=== PATIENT | male | born 1995 | race Caucasian/White ===

== ENCOUNTER 2016-12-27 18:12 | Inpatient (IN) | payer MEDICAID ==
[~2016-12-27] VITALS: Ht 180.3 cm; Wt 73.1 kg
--- NOTE | 2016-12-27 20:25 | NUR ---
MSE COMPLETED BY DR JIMÉNEZ
--- NOTE | 2016-12-27 20:27 | NUR ---
XRAY AT BEDSIDE
[2016-12-27 20:33] LABS: BASOPHIL % 0.1 % (0-2); RED CELL DISTRIBUTION WIDTH 13.2 % (11.5-14.5)
[2016-12-27 20:38] LABS: PLATELET COUNT 120 x10^3mcL (130-400)
[2016-12-27 20:41] LABS: CALCIUM 8.9 mg/dL (8.5-10.1); CARBON DIOXIDE 29.8 mmol/L (21-32); CHLORIDE SERUM 103 mmol/L (98-107); CREATININE SERUM 0.8 mg/dL (0.7-1.3); GFR1 > 60 mL/min; GLUCOSE SERUM 88 mg/dL (74-106); SODIUM SERUM 142 mmol/L (136-145)
[2016-12-27 20:56] LABS: ALBUMIN 3.5 g/dL (3.4-5.0); ALKALINE PHOSPHATASE 47 U/L (46-116); ALT/SGPT 24 U/L (16-63); AST/SGOT 38 U/L (15-37); BILIRUBIN TOTAL 0.4 mg/dL (0.20-1.00); TOTAL PROTEIN, SERUM 8.7 g/dL (6.4-8.2)
[2016-12-27 21:07] LABS: microscopic required? NO
[2016-12-27 21:22] LABS: CK-MB < 0.5 ng/mL (0-3.6); CREATINE KINASE 51 U/L (39-308)
[2016-12-27 21:29] LABS: UA SPECIFIC GRAVITY 1.015 (1.005-1.035); urine erythrocyte NEGATIVE (NEGATIVE)
--- NOTE | 2016-12-27 21:57 | NUR ---
DR JIMÉNEZ AT BEDSIDE DISCUSSING PLAN OF CARE WITH PT
--- NOTE | 2016-12-27 23:19 | NUR ---
PT TO CT
--- NOTE | 2016-12-27 23:27 | NUR ---
PT BACK FROM CT, NO DISTRESS NOTED
--- NOTE | 2016-12-28 01:32 | NUR ---
PT MOVED TO BED 1 VIA [facility].
--- NOTE | 2016-12-28 02:45 | NUR ---
PT RESTING IN GURNEY IN POSITION OF COMFORT. RESP E/U, NO DISTRESS NOTED.
--- NOTE | 2016-12-28 03:00 | NUR ---
REPORT CALLED TO MILTON PEREZ FOR CONTINUATION OF CARE.
--- NOTE | 2016-12-28 03:25 | NUR ---
RECEIVED PT FROM ER VIA [facility] WITH NURSE AT BEDSIDE. PT IS AWAKE, ALERT, ORIENTED X4. SPEECH CLEAR. ABLE TO MAKE NEEDS KNOWN. PT ADMITTED FOR PNA, POSSIBLY R/O TB. PT HAS BEEN PLACED IN AIRBORN PRECAUTIONS. HISTORY OBTAINED FROM PT. INITIAL ASSESSMENT COMPLETED. DR. CRANE AT BEDSIDE TO ASSESS PT AND TALK ABOUT PLAN OF CARE. LEVAQUIN INFUSING FROM ER. IVF NS STARTED AT 100ML/HR. ORIENTED PT TO ROOM AND SURROUNDINGS. BED IS IN LOWEST POSITION. INSTRUCTED PT TO USE CALL LIGHT FOR ASSISTANCE, WHICH IS WITHIN REACH. WILL CARRY OUT ALL NEW ORDERS.
[2016-12-28 03:43] VITALS: BP 112/72
[2016-12-28 04:19] LABS: MAGNESIUM 1.9 mg/dL (1.8-2.4); PHOSPHOROUS 4.1 mg/dL (2.5-4.9)
[2016-12-28 04:20] VITALS: BP 112/72
[2016-12-28 04:26] LABS: CHOLESTEROL/HDL RATIO 5.5
[2016-12-28 04:27] LABS: FREE THYROXINE INDEX 2.2 ug/dL (1.4-4.5); T4(THYROXINE) 6.6 ug/dL (4.7-13.3)
[2016-12-28 04:30] LABS: FREE T4 0.85 ng/dL (0.76-1.46)
[2016-12-28 04:49] LABS: T3 TOTAL 0.84 ng/mL
[2016-12-28 05:33] VITALS: BP 123/54
--- NOTE | 2016-12-28 06:50 | NUR ---
PT RESTING IN BED AT THIS TIME. SCD'S TO BLE. IVF ONGOING. PT REMAINS IN AIRBORN PRECAUTIONS. CALL LIGHT WITHIN REACH. WILL ENDORSE TO INCOMING SHIFT.
[2016-12-28 10:00] VITALS: BP 105/61
--- NOTE | 2016-12-28 10:21 | NUR ---
PT ON BED, AWAKE, ALERT, AND ORIENTED. HAS NO COMPLAINT OF PAIN, SOB, OR DIZZINESS. RESPONDS WELL TO QUESTION AND ANSWER. PT IS ON AIRBORNE ISOLATION FOR R/O. PT'S FAMILY AT BEDSIDE. CLEAR ELLEN LUNG FIELD, SYMMETRICAL CHEST EXPANSION AND UNLABORED. ACTIVE BOWEL SOUNDS NOTED. SIDE RAILS UP, CALL LIGHT WITHIN REACH, WILL CONTINUE TO MONITOR
--- NOTE | 2016-12-28 10:58 | NUR ---
OOD SKIN TEST DONE ON THE LFA. WILL RECHECK IN 48 HOURS
--- NOTE | 2016-12-28 12:27 | NUR ---
Initial Nutrition Assessment Dx: Pneumonia PMHx: No known past medical history PSHx: None Labs: (12/27) BG 88, AST 38 H, A1C 5.6, WBC 3.9 L, H/H 12.3/37 L Meds: Colace, NS IV, zofran Current Diet Order: Regular PO Intakes: None recorded yet Ht: 71", 5' 11". Wt: 161 lb, 73 kg. BMI: 22.5 kg/m2 (Normal) IBW: 172 lb, 78 kg. %IBW: 94%. UBW: 190 lb, 86 kg (6 months ago per pt); 290 lb, 132 kg (2011 per pt) Age: 21 Y/O M Food Allergies: None Skin: Intact. Sadiq 21. Edema: None GI: Active bowel sounds. Last BM 12/27. Formed stools. Nursing Trigger: Unintentional weight loss >10 lb in past month. Pt found with acute onset SOB possibly secondary to pneumonia, r/o TB vs PCP PNA vs [place], CT angio shows bilateral mediastinal ground glass opacities, PE r/o, on isolation, airborne precautions, HIV rapid antigen test positive, 100 lb of unintentional weight loss over past 12-14 months per doctor's notes. Pt remains on airborne isolation precautions, noted multiple snacks (chips, cookies) at bedside. Spoke with RN, reported that pt is on isolation due to trying to rule out TB at this time, ate fairly this morning, 70-80% of breakfast, tolerated diet well with no issues. 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 Pt stated that he has noticed a lack of appetite recently, and sometimes would need to force himself to eat foods. Pt also stated that he has been very tired recently as well, lethargic today due to being unable to sleep last night. RD offered smoothies or nutrition oral supplement with meals to aid in weight maintenance and PO intakes, pt declined, stated that he is good with foods at this time. RD also informed pt that he is on a regular diet with no restrictions, understands to voice food preferences. Spoke with Dr. Hannon regarding pt's nutritional status, doctor agreeable and noted. Problem with: N: None. V: None. D: None. C: None. Problems with: Chewing: None. Swallowing: None. Current Appetite: Fair Recent Weight Change: -29 lb. % Weight Change: 34% weight loss within 6 months - Significant Vitamin/Supplement use: None Diet at Home: Regular; Usually 1-2 meals/day, small amounts Physical Activity: Limited Education: RD provided general, healthful education, stated to incorporate snacks and nutrient-dense foods/smoothies in between meals to aid in weight maintenance and PO intakes. Pt verbalizes understanding. Estimated Nutritional Needs Based CBW 161 lb, 73 kg. Energy: 5661-2538 kcal/day (30-35 kcal/kg for Increased Metabolic Demands, HIV) Protein: 73-110 gm/day (1-1.5 gm/kg for Increased Metabolic Demands, HIV) Fluids: 2190 ml/day (30 ml/kg for Maintenance) or per doctor Nutrition Diagnosis 1. Increase nutritional needs related to increased metabolic demands as evidenced by pt with HIV rapid antigen test positive 2. Unintentional weight loss related to lack of appetite over the past 6 months secondary to possible pneumonia, HIV positive as evidenced by 34% weight loss within 6 months, significant Intervention 1. Continue Regular diet per doctor. 2. [place] pt's food preferences. 3. Consider appetite stimulant upon discharge or if/when medically appropriate to aid in PO intakes. 4. Consider weekly weights to assess trends. Monitor/Evaluate Goal: PO intakes to meet >75% of estimated needs; No further weight loss during LOS Monitor: PO intakes, tolerance to diet, labs, skin integrity, GI function, weights F/U in 7 days as LOW risk (01/04)
--- NOTE | 2016-12-28 12:28 | NUR ---
1. Continue Regular diet per doctor. 2. [place] pt's food preferences. 3. Consider appetite stimulant upon discharge or if/when medically appropriate to aid in PO intakes. 4. Consider weekly weights to assess trends.
--- NOTE | 2016-12-28 14:00 | NUR ---
PT ON BED, ASLEEP. WILL CONTINUE TO MONITOR
[2016-12-28 15:07] VITALS: Ht 180.3 cm; Wt 73.1 kg
--- NOTE | 2016-12-28 17:50 | NUR ---
PT ON BED, AWAKE, ALERT, AND ORIENTED. HAS NO COMPLAINT OF PAIN, SOB, OR DIZZINESS. RESPONDS WELL TO QUESTION AND ANSWER. SIDE RAILS UP, CALL LIGHT WITHIN REACH, WILL CONTINUE TO MONITOR
--- NOTE | 2016-12-28 20:00 | NUR ---
PT A/A/O X4. DENIES DIZZINESS AND HEADACHE. BREATH SOUNDS CLEAR. BREATHING EVEN AND UNLABORED ON ROOM AIR. DENIES CHEST PAIN AND PRESSURE. BOWEL SOUNDS ACTIVE. NO C/O N/V AND ABD PAIN. IV INTACT ON THE RAC INFUSING WITH NS AT 100 ML/HR. MADE PT COMFORTABLE. PLACED CALL LIGHT WITH IN REACH. WILL CONTINUE TO MONITOR.
--- NOTE | 2016-12-28 21:02 | NUR ---
PT WITH TEMP OF 104.2. GAVE PT TYLENOL PO. PT TOLERATED IT WELL. COOLING MEASURES IMPLEMENTED. MADE PT COMFORTABLE. WILL CONTINUE TO MONITOR.
[2016-12-28 21:07] VITALS: BP 107/52
--- NOTE | 2016-12-28 23:07 | NUR ---
PATIENTS TEMP 102.0. COOLING MEASURE CONTINUED TO BE IMPLEMENTED. DR. SAVAGE NOTIFIED. WILL CONTINUE TO MONITOR.
--- NOTE | 2016-12-29 01:31 | NUR ---
PT TEMP 99.7. AWARE. WILL CONTINUE TO MONITOR.
[2016-12-29 05:10] VITALS: BP 114/60
--- NOTE | 2016-12-29 07:30 | NUR ---
RECEIVED Pt. AAOX4, RESPIRATIONS EVEN AND UNLABORED. Pt. REPORTED FEELING WARM TEMPERATURE AT 101.4, COOLING MEASURES PROVIDED WILL MEDICATE WITH TYLENOL. TELE IN PLACE HR 112. DENIES CHEST PAIN/PRESSURE. IVF RUNNING TO IV AT RIGHT AC PATENT AND INTACT. ON AIRBORNE PRECAUTIONS. BED LOW/LOCKED. CALL LIGHT IN REACH.
[2016-12-29 07:33] LABS: BASOPHIL % 0.2 % (0-2); RED CELL DISTRIBUTION WIDTH 13.2 % (11.5-14.5)
[2016-12-29 07:44] LABS: CALCIUM 8.3 mg/dL (8.5-10.1); CARBON DIOXIDE 25.8 mmol/L (21-32); CHLORIDE SERUM 104 mmol/L (98-107); CREATININE SERUM 0.9 mg/dL (0.7-1.3); GFR1 > 60 mL/min; GLUCOSE SERUM 96 mg/dL (74-106); MAGNESIUM 1.8 mg/dL (1.8-2.4); PHOSPHOROUS 2.9 mg/dL (2.5-4.9); POTASSIUM SERUM 4.1 mmol/L (3.5-5.1); SODIUM SERUM 138 mmol/L (136-145)
[2016-12-29 07:45] LABS: PLATELET COUNT 119 x10^3mcL (130-400)
[2016-12-29 07:56] LABS: AMPHETAMINE QUAL UR NONE DETECTED (NEG <=1000)
--- NOTE | 2016-12-29 08:06 | NUR ---
TYLENOL GIVEN PO TEMP 101.[address] WILL CONTINUE TO MONITOR.
[2016-12-29 09:09] VITALS: BP 117/75
--- NOTE | 2016-12-29 10:00 | NUR ---
RECHECKED Pt. TEMP AT 99.0
[2016-12-29 13:05] VITALS: BP 106/60
--- NOTE | 2016-12-29 15:01 | NUR ---
Follow-up Nutrition Assessment Dx:Pneumonia Labs: (12/29) Ca:8.3L, H/H:11.7/36L Meds: Colace, Levaquin, NS IVF, Zofran Diet: Regular PO intake: (12/29) B:0% Weights: (12/27)161#, 73kg (12/28)161#, 73kg Skin: intact Edema: none Last BM:12/27 Per progress note 12/29, CT angiography shows BL mediastinal ground glass opacities. PE ruled out. During visit, pt reports to decreased appetite due to being tired and not getting enough sleep. Pt was too tired to eat breakfast and requested a supplement instead. Pt also does not want an appetite stimulant right now but wants to try supplements first and will think about adding an appetite stimulant possibly before he discharges or in the future. Provided pt with handout on ways to increase calorie and protein intake. Estimated Nutritional Needs unchanged from prior assessment:73kg Energy: 2190-2555kcal/day (30-35kcal/kg for increased metabolic demands, HIV) Protein: 73-110g/day (1-1.5gm/kg for increased metabolic demands, HIV) Fluid: 2190ml/day (30ml/kg for maintenance) or per doctor Nutrition Diagnosis 1. Increased nutritional needs related to increased metabolic demands as evidenced by pt with HIV rapid antigen test positive. (ongoing) 2. Unintentional weight loss related to lack of appeitite over the past 6 months secondary to possible pneumonia, HIV positive as evidenced by 34% wt loss within 6 months , significant (ongoing) 3. Inadequate protein energy intake related to poor appetite secondary to lethargy as evidenced by pt eating 0%x 1 meal. Intervention 1. Recommend adding Boost Plus TID (provides 1080kcal and 135g pro) 2. Consider weekly wts to assess trends Monitor/Evaluate Previous goal:PO intake to meet >75% est needs (not met) and no further wt loss. Goal: PO intake at least 75% of estimated needs from meals and supplements Monitor: PO intake, Labs, GI function and wts F/U in 3-5 days as moderate risk:01/01-
--- NOTE | 2016-12-29 15:02 | NUR ---
1. Recommend adding Boost Plus TID (provides 1080kcal and 135g pro) to help PO intake. 2. Consider weekly wts to assess trends
--- NOTE | 2016-12-29 16:30 | NUR ---
Pt. INSTRUCTED THAT SPUTUM SPECIMEN FOR 2ND AF[employer] IS NEEDED AND VERBALIZED THAT HE WILL TRY TO PROVIDE SPECIMEN.
[2016-12-29 17:09] VITALS: BP 109/68
--- NOTE | 2016-12-29 17:30 | NUR ---
Pt. STILL WITH NO SPUTUM SPECIMEN AVAILABLE AT THIS TIME. Pt. REMINDED THAT SPUTUM SPECIMEN IS NEEDED FOR 2ND [employer].
--- NOTE | 2016-12-29 17:55 | NUR ---
WENT IN TO NTS Pt AT THIS TIME. Pt DOES NOT WANT TO BE NTS'd AND SAYS HE DOES NOT FEEL LIKE HE HAS ANY PHLEGM TO COUGH UP BUT HE WILL CONTINUE TO TRY TO EXPECTORATE INTO SAMPLE CUP.
--- NOTE | 2016-12-29 18:39 | NUR ---
Pt. AAOX4, RESPIRATIONS EVEN AND UNLABORED. DENIES PAIN/DISCOMFORT AT THIS TIME. NO DISTRESS NOTED. AIRBORNE PRECAUTIONS OBSERVED. TELE IN PLACE. 2ND SPUTUM SPECIMEN COLLECTED FOR AFB. IVF RUNNING TO IV AT RIGHT AC PATENT AND INTACT. BED LOW/LOCKED. CALL LIGHT IN REACH.
--- NOTE | 2016-12-29 19:10 | NUR ---
REPORT RECEIVED FROM MARIAN PEREZ. PT IS AOX4, RESPIRATIONS EVEN/UNLABORED. IV TO RAC PATENT WITHOUT S/SX OF INFILTRATION. PT WITH AIRBORNE PRECAUTIONS. PT'S BED LOCKED AND IN LOWEST POSITION. CALL LIGHT WITHIN REACH. WILL CONTINUE TO MONITOR.
--- NOTE | 2016-12-29 20:09 | NUR ---
PT C/O OF UNCONTROLABLE SHAKING X20-30 MIN. PT AFEBRILE, WTT, AIR CONDITIONER OFF AT THIS TIME AND PT USING [address] MOORE MADE AWARE.
[2016-12-29 21:23] VITALS: BP 116/74
--- NOTE | 2016-12-30 00:32 | NUR ---
PT IS SLEEPING ON LEFT SIDE WITH HOB ELEVATED TO COMFORT. RESPIRATIONS ARE EVEN AND UNLABORED. CALL LIGHT IS WITHIN REACH. WILL CONTINUE TO MONITOR.
--- NOTE | 2016-12-30 07:10 | NUR ---
RECEIVED Pt. AAOX4, RESPIRATIONS EVEN AND UNLABORED. DENIES PAIN/DISCOMFORT AT THIS TIME. NO DISTRESS NOTED AT THIS TIME. ON AIRBORNE PRECAUTIONS. TELE IN PLACE HR 70. IVF RUNNING TO IV AT RIGHT AC PATENT AND INTACT. BED LOW/LOCKED. CALL LIGHT IN REACH.
--- NOTE | 2016-12-30 07:48 | NUR ---
MADE ROUNDS WITH DR. LUNSFORD AND MEDICINE TEAM, Pt. TO CONTINUE IV ANTIBIOTICS AND AGREED WITH PLAN OF CARE.
[2016-12-30 08:54] LABS: CARBON DIOXIDE 26.2 mmol/L (21-32); CHLORIDE SERUM 105 mmol/L (98-107); CREATININE SERUM 0.7 mg/dL (0.7-1.3); GFR1 > 60 mL/min; GLUCOSE SERUM 94 mg/dL (74-106); MAGNESIUM 1.9 mg/dL (1.8-2.4); PHOSPHOROUS 3.2 mg/dL (2.5-4.9); POTASSIUM SERUM 4.3 mmol/L (3.5-5.1); SODIUM SERUM 140 mmol/L (136-145)
[2016-12-30 08:57] LABS: RED CELL DISTRIBUTION WIDTH 13.1 % (11.5-14.5)
--- NOTE | 2016-12-30 09:40 | NUR ---
Pt. SHAKING AFEBRILE AT THIS TIME. Pt. REPORTED FEELING ANXIETY, DR. SANDOVAL MADE AWARE AWAITING ORDERS.
--- NOTE | 2016-12-30 09:52 | NUR ---
Pt. C/O ANXIETY ATIVAN GIVEN PO, Pt. ALSO REPORTED X 1 EMESIS ORANGE COLORED SMALL AMOUNT NONE NOTED AT THIS TIME. ZOFRAN IVP GIVEN WILL CONTINUE TO MONITOR.
[2016-12-30 10:05] LABS: BASOPHIL % 0 % (0-2); PLATELET COUNT 101 x10^3mcL (130-400)
[2016-12-30 10:34] VITALS: BP 119/76
--- NOTE | 2016-12-30 11:02 | NUR ---
Pt. DENIES ANXIETY POST ATIVAN AND DENIES NAUSEA/VOMITING AT THIS TIME POST ZOFRAN. Pt. REPORTED FEELING WARM TEMP CHECKED 103.4, COOLING MEASURES INITIATED AND TYLENOL GIVEN PO, WILL CONTINUE TO MONITOR. DR. SANDOVAL MADE AWARE.
--- NOTE | 2016-12-30 12:56 | NUR ---
RECHECK TEMP POST TYELENOL 98.5 Pt. SITTING UP IN CHAIR AT BEDSIDE GETTING READY TO EAT LUNCH TRAY.
[2016-12-30 13:55] VITALS: BP 92/48
[2016-12-30 17:32] VITALS: BP 100/63
--- NOTE | 2016-12-30 18:00 | NUR ---
Pt. AAOX4, RESPIRATIONS EVEN AND UNLABORED, DENIES PAIN/DISCOMFORT. NO DISTRESS NOTED. Pt. REPORTED IMPROVING APPETITE. TELE IN PLACE. IVF RUNNING TO IV AT RIGHT AC PATENT AND INTACT. TELE IN PLACE. AIRBORNE PRECAUTIONS OBSERVED. BED LOW/LOCKED. Pt. SITTING UP IN CHAIR AT BEDSIDE WITH CALL LIGHT IN REACH.
--- NOTE | 2016-12-30 19:30 | NUR ---
PT IS ALERT AND ORIENTED. PLEASANT AND COOPERATIVE. LUNGS CLEAR, DIMINISHED ON AUSCULTATIONS BILATERALLY UPPER AND LOWER BASES. WAS REPORTED THAT THE RT CANNOT ASPIRATE ANY SPUTUM FOR THE 3RD AFB TONIGHT.ENCOURAGED PT TO EXPECTORATE SECRETIONS AND PT STATED HE WILL TRY. PT ALSO STATED THAT HE IS FEELING MUCH BETTER AND BREATH MORE EASIER NOW. STILL HAS IV NS AT 100 ML PER HOUR INFUSING WELL IN THE RIGHT AC. STILL GETTING LEVAQUIN AND SEPTRA. MAINTAINED AIRBORNE PRECAUTION TO R/O TB. GOLD TEST NEGATIVE. MADE COMFORTABLE IN BED. CALL LIGHT WITHIN EASY REACH.
[2016-12-30 20:15] VITALS: BP 100/63
--- NOTE | 2016-12-30 20:19 | NUR ---
PT EXPECTORATED SPUTUM AND SENT IT TO LAB FOR AFB NUMBER 3. TOLERATED WELL. WILL MONITOR.
[2016-12-30 20:44] VITALS: BP 101/59
--- NOTE | 2016-12-30 21:03 | NUR ---
PT WAS SHIVERING AND SHAKING AND ASKED FOR ATIVAN. MEDICATED. LOW GRADE FEVER NOTED TEMP-100.2F. WILL MONITOR.
--- NOTE | 2016-12-30 21:54 | NUR ---
PT C/O MODERATE BACK PAIN 10/23. MEDICATED WITH NORCO 1 TAB PO. ALSO PT REQUESTED AMBIEN 5 MG PO FOR SLEEP. MEDICATED. WILL MONITOR.
--- NOTE | 2016-12-31 03:55 | NUR ---
LEVAQUIN 750 MG IVPB WAS ADMINISTERED.
--- NOTE | 2016-12-31 05:06 | NUR ---
PT IS RESTING. DENIES ANY PAIN AT THIS TIME. LEVAQUIN WAS ADMINSITERED IVPB WITHOUT ADVERSE REACTION NOTED. STILL HAS IV NS AT 100 ML PER HOUR INFUSING WELL IN THE RIGHT AC. MADE COMFORTABLE IN BED. CALL LIGHT WITHIN EASY REACH.
[2016-12-31 05:37] VITALS: BP 97/34
--- NOTE | 2016-12-31 05:40 | NUR ---
PT IS FEBRILE 102.9F. MEDICATED WITH TYLENOL 650 MG PO. COOLING MEASURES INITIATED. WILL MONITOR.
--- NOTE | 2016-12-31 07:37 | NUR ---
AT 0725 - RECEIVED PATIENT FROM NIGHT NURSE. AWAKE AND ORIENTED. MONITOR SHOWING SINUS RHYTHM; RATE 98. RESPIRATIONS REGULAR. ON AIRBORNE ISOLATION (R/O TB). 3RD AFB SPUTUM COLLECTED ACCORDING TO NIGHT NURSE. IV INFUSING NS AT 100ML/HR.
[2016-12-31 09:16] VITALS: BP 88/38
--- NOTE | 2016-12-31 09:22 | NUR ---
AT 0810 - SEEN BY DR MCGINNIS DURING MORNING ROUNDS. MEDICAL TEAM DOCTORS, KOLTON AMATO AND MYSELF PRIMARY NURSE ALSO RPESENT. DR MCGINNIS SPOKE WITH PATIENT ABOUT PLAN OF TREATMENT AND TEST RESULTS. AT 0920 - PATIENT AMBULATED TO BATHROOM. SAYS THAT HE VOMITED, BUT DENEIS ANY NAUSEA. HAS NOT EATEN BREAKFAST. ENCOURAGED TO TAKE NUTRITIONAL SUPPLIMENT, BOOST.
--- NOTE | 2016-12-31 10:21 | NUR ---
PPD SKIN TEST NEGATIVE AT 72 HOURS.
[2016-12-31 12:35] VITALS: BP 103/45
--- NOTE | 2016-12-31 14:00 | NUR ---
AT 1238 - TEMP 100.3 PATIENT ALSO C/O OF DEVELOPING HEADACHE. MEDICATED WITH TYLANOL PER EMAR. DR SANDOVAL MADE AWARE. AT 1300 - GIVEN ICE PACK TO BACK OF NECK. PATIENT ENCOURAGED TO DRINK PLENTY OF FLUIDS PO. O2 SAT 89%. PALCED ON O2 VIA NC AND SPOKE WITH RT WHO WILL COME AND CHECK PATIENT. AT 1340 - C/O DEVELOPING SORE THROAT. DR SANDOVAL MADE AWARE.
--- NOTE | 2016-12-31 15:42 | NUR ---
O2 SAT REMAINS LOW ON ROOM AIR = 90% . 95% ON 2 L VIA NC.
--- NOTE | 2016-12-31 23:04 | NUR ---
[employer] WAS DOWN. SEE DOWNTIME ASSESSMENT PAPER.
--- NOTE | 2017-01-01 01:10 | NUR ---
CHECKED TEMPERATURE WAS 102.7F. MEDICATED WITH TYLENOL 650 MG PO.WILL MONITOR. COOLING MEASURES APPLIED TO BOTH AXILLARY AREA.
--- NOTE | 2017-01-01 02:39 | NUR ---
PT C/O BEING HUNGRY. PROVIDED WITH SNACKS. NOTED PT REFUSED TO EAT HIS FOOD YESTERDAY. PER REPORT FROM DAY SHIFT. PT HAS VERY POOR APPETITE.
--- NOTE | 2017-01-01 04:45 | NUR ---
PT IS RESTING. WAS FEBRILE EARLIER AND WAS GIVEN TYLENOL 01:09 AM. COOLING MEASURES APPLIED TO AXILLA. DRANK MORE FLUIDS AND SNACKS WAS TOLERATED WELL. DENIES ANY PAIN OR DISCOMFORT FOR NOW. MADE COMFORTABLE IN BED. CALL LIGHT WITHIN EASY REACH. WILL CONTINOUSLY MONITOR.
--- NOTE | 2017-01-01 05:57 | NUR ---
RECHECKED TEMP-100.6F. MEDICATED WITH TYLENOL 650 MG PO. WILL MONITOR.
--- NOTE | 2017-01-01 05:58 | NUR ---
SPUTUM SPECIMEN SENT TO LAB FOR AFB CULTURE.
[2017-01-01 06:04] VITALS: BP 92/47
--- NOTE | 2017-01-01 07:33 | NUR ---
RECEIVED PATIENT FROM NIGHT NURSE. RESTING QUIETLY; RESPIRATIONS REGULAR, ON O2 VIA NC AT 2L. MONITOR SHOWING SINUS RHYTHM; RATE 90'S. ON AIRBORNE ISOLATION FOR R/O TB. 3 AFB SPUTUMS HAVE BEEN RECEIVED BY LAB.
[2017-01-01 07:43] LABS: BASOPHIL % 0.2 % (0-2); RED CELL DISTRIBUTION WIDTH 13.6 % (11.5-14.5)
[2017-01-01 07:44] LABS: PLATELET COUNT 116 x10^3mcL (130-400)
[2017-01-01 07:58] LABS: CALCIUM 7.8 mg/dL (8.5-10.1); CARBON DIOXIDE 23.8 mmol/L (21-32); CHLORIDE SERUM 104 mmol/L (98-107); GFR1 > 60 mL/min; GLUCOSE SERUM 96 mg/dL (74-106); MAGNESIUM 1.8 mg/dL (1.8-2.4); PHOSPHOROUS 2.9 mg/dL (2.5-4.9); SODIUM SERUM 137 mmol/L (136-145)
--- NOTE | 2017-01-01 08:10 | NUR ---
AWAKE, ALERT AND ORIENTED. DENIES ANY PAIN OR SOB. SAT UP IN BED FOR BREAKFAST. PATIENT ENCOURAGED WITH FOOD.
[2017-01-01 09:00] VITALS: BP 106/55
--- NOTE | 2017-01-01 12:18 | NUR ---
AT 0930 - SEEN BY DR SEBASTIAN DURING MORNING ROUNDS. MEDICAL TEAM DOCTORS, KOLTON AMATO AND MYSELF PRIMARY NURSE ALSO PRESENT. DR SPOKE WITH PATIENT ABOUT CURRENT PLAN OF TREATMENT AND TEST RESULTS. DR ALSO ANSWERED PATIENT'S QUESTIONS. AT 0950 - IV IN RAC, LEAKING. IV CATHETER REMOVED INTACT. IV RESITED IN RFA AND MORNING DOSE OF SEPRA COMMENCED. AT 1025 - PATIENT AND FAMILY HAD SOME QUESTIONS FOR THE DOCTOR. CALLED DR GARZA, WHO CAME AND SPOKE WITH THEM. AT 1210 - PATIENT RESTING QUIETLY. REMAINS AFEBRILE.
[2017-01-01 13:26] VITALS: BP 106/59
--- NOTE | 2017-01-01 14:34 | NUR ---
AT 1400 - PATIENT HAD EPISODE OF SEVERE BODY SHAKING. TEMP 101.0 O2 SAT 78%. PATIENT SITTING IN CHAIR AT THIS TIME. PLACED ON O2 VIA NC AT 2L/MIN. GIVEN TYLANOL PER EMAR FOR FEVER. CALLED DR MACDOANLD AND MADE AWARE OF THIS. PATIENT ALSO VOMITED SMALL AMOUNT, BUT DENIED ANY NAUSEA; SAYS THAT VOMITING COMES FROM COUGHING. AT 1430 - SHAKING HAS ABATED. PATIENT REMAINS SITTING IN CHAIR AND SAYS THAT HE IS COMFORTABLE AT THIS TIME.
--- NOTE | 2017-01-01 16:09 | NUR ---
SEEN BY DR GRAHAM. DR SPOKE WITH PATIENT ABOUT DIAGNOSIS AND PLAN OF TREATMENT. NO FURTHER SHAKING. PATIENT RESTING QUIETLY.
[2017-01-01 17:36] VITALS: BP 107/59
--- NOTE | 2017-01-01 19:04 | NUR ---
RESTING QUIETLY. AFEBRILE AT THSI TIME. IV INFUSING NS AT 100ML/HR. REMAINS ON O2 VIA NC. STIL HAS POOR APPETTIE BUT PO FOOD AND FLUID INTAKE IMPROVED TODAY. WILL ENDORSE CARE TO NIGHT NURSE.
--- NOTE | 2017-01-01 19:30 | NUR ---
PT IS ALERT AND ORIENTED, PLEASANT AND COOPERATIVE. LUNGS DIMINISHED,ON AUCULTATIONS BILATERALLY UPPER AND LOWER BASES. PT ATE MUCH BETTER THAN YESTERDAY OTHERWISE STILL HAS FAIR APPETITE. STILL GETTING SEPTRA AND LEVAQUIN IV ANTIBIOTIC. PPD NEGATIVE. STILL GETTING NS AT 100 ML PER HOUR INFUSING WELL IN THE RIGHT FOREARM. PATENT AND INTACT. WILL MONITOR.
[2017-01-01 21:27] VITALS: BP 100/51
--- NOTE | 2017-01-02 01:30 | NUR ---
CHECKED TEMPERATURE 100.6F. WILL MONITOR.
--- NOTE | 2017-01-02 04:56 | NUR ---
RESTING IN BED. MADE COMFORTBLE IN BED. LATEST TEMP 100.6F. STILL HAS IV NS AT 100 ML PER HOUR INFUSING WELL IN THE RIGHT FOREARM. PATENT AND INTACT. WILL MONITOR.
[2017-01-02 05:39] VITALS: BP 104/64
[2017-01-02 07:35] LABS: PLATELET COUNT 139 x10^3mcL (130-400); RED CELL DISTRIBUTION WIDTH 13.2 % (11.5-14.5)
[2017-01-02 07:39] LABS: BASOPHIL % 0 % (0-2)
--- NOTE | 2017-01-02 07:46 | NUR ---
AT 0710 - RECEIVED PATIENT FROM NIGHT NURSE. PATIENT SITTING ON FLOOR AGAINST A WALL. SAYS THAT POSITION HELPS HIS BACK. PATIENT IS AWAKE, ALERT AND ORIENTED. RESPIRATIONS REGULAR. ON O2 VIA NC. IV INFUSING NS AT 100ML/HR. AT 0745 - EATING BREAKFAST AT THIS TIME.
[2017-01-02 08:00] LABS: CARBON DIOXIDE 22.9 mmol/L (21-32); CHLORIDE SERUM 104 mmol/L (98-107); CREATININE SERUM 1.1 mg/dL (0.7-1.3); GFR1 > 60 mL/min; GLUCOSE SERUM 140 mg/dL (74-106); MAGNESIUM 1.6 mg/dL (1.8-2.4); PHOSPHOROUS 1.6 mg/dL (2.5-4.9); POTASSIUM SERUM 3.4 mmol/L (3.5-5.1); SODIUM SERUM 133 mmol/L (136-145)
[2017-01-02 09:24] VITALS: BP 99/47
--- NOTE | 2017-01-02 10:01 | NUR ---
AT 0915 - DR MACDONALD MADE AWARE OF ELECTORLYTES OUT OF RANGE - K 3.4, PHOS 1.6, AND MG = 1.6.
--- NOTE | 2017-01-02 10:45 | NUR ---
DR MCRAE MADE AWARE OF PATIENT'S REFUSAL OF MEGACE AND NYSTATIN. SHE WILL SPEAK WITH PATIENT.
[2017-01-02 13:01] VITALS: BP 108/62
[2017-01-02 16:30] VITALS: BP 119/60
--- NOTE | 2017-01-02 16:34 | NUR ---
AT 1145 - COMMENCED 2 GRAM MAGNESIUM RIDER FOR MG LEVEL OF 1.6. TO INFUSE OVER 2 HOURS. AT 1540 - PATIENT HAVING BODY SHAKES. NOTED RED RASH ON ELLEN SHOULDERS AND UPPER ARMS AND MORE FAINTLY ON UPPER THIGHS. SEEN BY DR GRAHAM. DR NOTED PATIENT'S RASH. AT 1600 - TEMP 102.0 COOLING MEASURES INITIATED. GIVEN TYLANOL PER EMAR. DR MACDONALD NOTITIFED OF RASH ADN FEVER. DR GRAHAM SPOKE WITH DR VIVAR. RASH PHOTO DOCUMENTED AND PHOTOS GIVEN TO DR MACDONALD. AT 1630 - BODY SHAKING APPEARS TO HAVE SUBSIDED. PATIENT RESTING IN BED.
--- NOTE | 2017-01-02 18:32 | NUR ---
CURRENT TEMP POST TYLANOL IS 100.0. O2 SAT 94% ON 2L VIA NC. MONITOR SHOWING SINUS TACH; RATE 104. PATIENT HAS BEEN DRINKING PO LIQUIDS ENCOURAGED. EATING BETTER TODAY. IV INFUSION REMAINS AT 100 ML/HR NS. RASH TO UPPER ARMS AND THIGHS REMAINS UNCHANGED. WILL ENDORSE CARE TO NIGHT NURSE.
--- NOTE | 2017-01-02 19:30 | NUR ---
PT IS ALERT AND ORIENTED. PLEASANT AND COOPERATIVE. LUNGS DIMINISHED ON AUSCULTATIONS BILATERALLY. COUGHING OCCASIONALLY. WITH 02 AT 2 LITERS NASAL CANNULA. 02SAT 93-95%. ON AND OFF FEBRILE. BUT ALWAYS HAS LOW GRADE FEVER. PT HAD SHOWER THIS AFTERNOON. STILL HAS FLUIDS IV NS AT 100ML PER HOUR INFUSING WELL IN THE RIGHT FOREARM. STILL GETTING 2 ANTIBIOTICS SEPTRA AND LEVAQUIN. NOTED PT DEVELOPED RASHES OVER HIS BODY. WAS MADE AWARE. WILL MONITOR.
[2017-01-02 21:07] VITALS: BP 101/51
--- NOTE | 2017-01-03 03:08 | NUR ---
PT C/O TEMP- 102.3. MEDICATED WITH TYLENOL 650 MG PO. PT WAS ALSO MEDICATED WITH ATIVAN 1 MG PO. WILL MONITOR.
--- NOTE | 2017-01-03 05:04 | NUR ---
PT IS ALERT AND ORIENTED, PLEASANT AND COOPERATIVE. LUNGS DIMINISHED ON AUSCULTATIONS BILATERALLY UPPER AND LOWER BASES. ALWAYS HAS FEVER. ALWAYS THIRSTY. NOTED DRINK A LOT OF WATER. DR. CORTEZ CAME AND VISITED THE PT AND NOTED CHANGE OF ANTUBIOTICS BECAUSE OF THE APPERANCE OF A SKIN RED RASHES ON BOTH ARMS AND THIGH AREA. WILL MONITOR.
[2017-01-03 05:12] VITALS: BP 91/37
--- NOTE | 2017-01-03 05:13 | NUR ---
THE NEW ANTIBIOTIC PENTAM 300 MG IS NOT AVAILABLE IN THE PIXES. MADE AWARE AND DR. MOORE MADE AWARE. THE SEPTRA WAS DISCONTINUED. WILL MONITOR.
--- NOTE | 2017-01-03 07:15 | NUR ---
PT WAS ENDORES TO ME THIS MORNING. A/O X4 TELE 34 ST. 124HR. LUNGS DIM ON 3L N/C. IV TO THE RFA 100ML/HR, NO REDNESS OR SWELLING NOTED. PT HAS TEMP 105, GAVE TWO TABS OF TYLENOL. CALL LIGHT IN REACH. BED IN LOW POSITION. WILL CONTINUE TO MONITOR PT FEVER.
[2017-01-03 07:50] VITALS: BP 106/47
[2017-01-03 08:42] LABS: PLATELET COUNT 155 x10^3mcL (130-400); RED CELL DISTRIBUTION WIDTH 13.2 % (11.5-14.5)
[2017-01-03 09:21] LABS: BASOPHIL % 0 % (0-2)
--- NOTE | 2017-01-03 09:30 | NUR ---
PT IS AFEBRILE. IS SLEEPING AT THIS TIME. PT IS BREATHING EVEN AND UNLABORED ON 2L NC. NO SOB NOTED. WILL CONTINUE TO MONITOR PT CARE.
[2017-01-03 09:43] LABS: CARBON DIOXIDE 22.2 mmol/L (21-32); CHLORIDE SERUM 106 mmol/L (98-107); CREATININE SERUM 0.9 mg/dL (0.7-1.3); GFR1 > 60 mL/min; GLUCOSE SERUM 113 mg/dL (74-106); PHOSPHOROUS 2.3 mg/dL (2.5-4.9); SODIUM SERUM 134 mmol/L (136-145)
--- NOTE | 2017-01-03 13:30 | NUR ---
PT IS SLEEPING VERY COMFORTABLE AT THIS TIME. NO RESP DISTRESS NOTED OR SOB. WILL CONTINUE TO MONITOR PT CARE. CALL LIGHT IN REACH. BED IN LOW POSITION ON AIRBORNE PERCAUTIONS.
--- NOTE | 2017-01-03 14:33 | NUR ---
Follow-up Nutrition Assessment- Melissa Iqbal 230T-A Dx:Pneumonia Labs: (01/03) Na:134L, BH, Ca:8.10L, Phos:2.3L, M.6L, H/H:10.1/31L Meds: Colace, Megace, Neutra-phos, NS IVF, Zofran Diet: Reg with Boost Plus TID PO intake: B: pt refused but drank Boost Plus. (01/01)B:15% Weights: (12/27) 161# (12/28)161# Skin: rashes on both upper arms and on thighs and legs. Edema: none Last BM: 01/02, bowel sounds active. Per progress note 01/02, pt developed rash throughout body per Dr. Gallego likely 2/2 antibiotics. MD Beauchamp notified. Pt with possible pneumocystitis PNA VS TB, r/o PE. Pt's CD4 count and viral load are pending. During visit, pt said his appetite is improving and he has been drinking the Boost Plus. Observed uneaten cookies and a muffin at pts bedside. Pt with emesis x1 after showering today but no c/o D/C. Estimated Nutritional Needs unchanged from prior assessment:CBW 73kg Energy: 2190-2555kcal/day (30-35kcal/kg for increased metabolic demands, HIV) Protein: 73-110g/day (1-1.5g/kg for increased metabolic demands, HIV) Fluid: 2190ml/day (30ml/kg for maintenance) or per doctor Nutrition Diagnosis 1. Increase nutritional needs related to increased metabolic demands as evidenced by pt with HIV rapid antigen test positive (ongoing) 2. Unintentional wt loss related to lack of appetitie over the past 6 months secondary to possible pneumonia, HIV positive as evidenced by 34% wt loss within the 6 months, significant (ongoing) Intervention 1. Continue with current diet order and encourage PO intake. 2. Recommend weekly weights. Monitor/Evaluate Previous goal:PO intakes to meet >75% est needs; no further weight loss (not met) Goal: PO intake at least 75% of estimated needs Monitor: PO intake, Labs, GI function, wts F/U in 2-3 days as high risk:01/05-
--- NOTE | 2017-01-03 14:35 | NUR ---
1. Continue with current diet order and encourage PO intake. 2. Recommend weekly weights.
[2017-01-03 16:15] VITALS: BP 92/59
[2017-01-03 17:31] VITALS: BP 111/71
--- NOTE | 2017-01-03 19:00 | NUR ---
PT A/O X4. BREATHING EVEN AND UNLABORED ON 2L N/C. PT DENIES ANY SOB AT THIS TIME. VS STABLE. WILL ENDORSE PT TO INCOMING NURSE. CALL LIGHT IN REACH BED IN LOW POSITION.
--- NOTE | 2017-01-03 19:30 | NUR ---
PT IS ALERT AND ORIENTED X 4. PLEASANT AND COOPERATIVE. LUNGS DIMINISHED ON AUSCULTATIONS BILATERALLY UPPER AND LOWER BASES. WITH 02 AT 3 LITERS NASAL CANNULA CONTINOUSLY. NEEDED SPUTUM FOR PCP. STILL HAS IV NS AT 100 ML PER HOUR INFUSING WELL IN THE RIGHT FOREARM. STILL GETTING NS IV AT 100 ML PER HOUR INFUSING WELL. STILL GETTING PENTAM IV AND LEVAQUIN IV. PT IS ALSO TAKING PREDNISONE FOR THE SKIN RASHES AND ALELRGY AND TRUVADA. STILL POOR APPETITE. MAY SHOWER. MADE COMFORTABLE IN BED. CALL LIGHT WITHIN EASY REACH.
--- NOTE | 2017-01-03 21:30 | NUR ---
PT C/O HEADACHE 08/23. MEDICATED WITH TYLENOL 650 MG PO AND AMBIEN 5 MG PO FOR SLEEP. WILL MONITOR.
[2017-01-03 21:38] VITALS: BP 102/61
--- NOTE | 2017-01-04 05:18 | NUR ---
CHAGED THE WHOLE BED AGAIN BECAUSE OF NIGHT SWEATS. THE PILLOW AND BEDSHEETS WERE WET. MADE COMFORTABLE IN BED. STILL HAS IV NS AT 100 ML PER HOUR INFUSING WELL IN THE RIGHT FOREARM. LEVAQUIN WAS INFUSED ORDERED. NO ADVERSE REACTION NOTED. STILL HAS SOME RED RASHES ON UPPER ARMS AND THIGH AREAS. BUT IMPROVING. STILL GETTING PREDNISONE AND BENADRYL PRN. WILL MONITOR.
[2017-01-04 06:11] VITALS: BP 97/59
[2017-01-04 06:50] LABS: CALCIUM 8.1 mg/dL (8.5-10.1); CARBON DIOXIDE 23.4 mmol/L (21-32); CHLORIDE SERUM 109 mmol/L (98-107); CREATININE SERUM 0.6 mg/dL (0.7-1.3); GFR1 > 60 mL/min; GLUCOSE SERUM 140 mg/dL (74-106); MAGNESIUM 2.1 mg/dL (1.8-2.4); PHOSPHOROUS 4.2 mg/dL (2.5-4.9); POTASSIUM SERUM 4.3 mmol/L (3.5-5.1); SODIUM SERUM 138 mmol/L (136-145)
--- NOTE | 2017-01-04 07:00 | NUR ---
PT WAS ENDORSE TO ME THIS MORNING. PT SLEEPING VERY COMFORTABLE, BREATHING EVEN AND UNLABORED, ON 2L NC. IV TO THE RFA INFUSING 100 ML/HR,PATENT. WILL CONTINUE PLAN OF CARE.
[2017-01-04 07:03] LABS: RED CELL DISTRIBUTION WIDTH 12.8 % (11.5-14.5)
[2017-01-04 07:36] LABS: PLATELET COUNT 128 x10^3mcL (130-400)
[2017-01-04 09:00] VITALS: BP 89/57
--- NOTE | 2017-01-04 09:00 | NUR ---
PER DOCTOR LORI ORDERS GIVING PT PENTAM IV.
--- NOTE | 2017-01-04 09:12 | NUR ---
GAVE PT BENADRLY DUE TO RASH ON ARMS AND FACE.
[2017-01-04 10:29] LABS: BAND NEUTROPHIL 7 % (0-10); BASOPHIL 0 % (0-2); MONOCYTE 5 % (0-7); SEGMENTED NEUTROPHILS 83 % (37-75)
[2017-01-04 10:30] LABS: PLATELET MORPHOLOGY PLATELETS DECREASED; rbc morphology (normal/abnorm) ABNORMAL (NORMAL); tear drop cell (dacryocyte) 1+
--- NOTE | 2017-01-04 12:52 | NUR ---
Spoke with July in TB Control at [facility] regarding TB status. Due to his negative AFB, QGold, TST, and diagnosis of AIDS per Dr. Campo, we have withdrawn our request for discharge approval for TB and the patient no longer needs to be in TB isolation. Dr. Francois also said the patient was taken out of isolation by Dr. Combs over the weekend. Information relayed to [place].
[2017-01-04 17:40] VITALS: BP 99/57
--- NOTE | 2017-01-04 19:00 | NUR ---
PT IS SITTING UP IN BED TALKING TO TWO OF HIS VITIORS. PT IS A/O X4 BREATHING EVEN AND UNLABORED. ON 2L N/C. DENIES ANY SOB. IV IS PATENT AND INFUSING. WILL ENDORSE PT TO ENDORSE PT TO INCOMING NURSE.
--- NOTE | 2017-01-04 20:12 | NUR ---
PT CURRENTLY RESTING IN BED, NO ACUTE DISTRESS. A/O X4. NO TELE, MED/SURG. DENIES CHEST PAIN. PULSES PALPABLE IN ALL EXTREMITIES, NO EDEMA NOTED. LUNGS SOUNDS DIMINISHED BILATERALLY, DENIES SOB. BOWEL SOUNDS ACTIVE, LAST BM 01/04/17. VOIDING WELL. AMBULATORY. BUE AND BLE RASH NOTED. DENIES PAIN AT THIS TIME. IV PATENT AND INTACT. BED IN LOWEST POSITION, SIDE RAILS UP X2, SCDS IN PLACE, CALL LIGHT WITHIN REACH. WILL CONTINUE TO MONITOR.
[2017-01-04 21:07] VITALS: BP 100/55
--- NOTE | 2017-01-05 01:23 | NUR ---
PT STATED MILD SOB, UNABLE TO FEEL OXYGEN THRU NASAL CANULA. NEW NASAL CANULA PLACED, PT STATED HE FEELS BETTER AND NO LONGER FEELING SOB. WILL CONTINUE TO MONITOR.
[2017-01-05 05:14] VITALS: BP 93/54
--- NOTE | 2017-01-05 05:49 | NUR ---
PT SLEPT PERIODICALLY THROUGHOUT NIGHT, NO ACUTE DISTRESS. ALL NEEDS MET AND ATTENDED TO. NO SIGNIFICANT CHANGES. IV PATENT AND INTACT. BED IN LOWEST POSITION, SIDE RAILS UP X2, SCDS IN PLACE, CALL LIGHT WITHIN REACH. WILL ENDORSE CARE TO ONCOMING NURSE.
--- NOTE | 2017-01-05 07:32 | NUR ---
AT 0710 - RECEIVED PATIENT FROM NIGHT NURSE. PATIENT AWAKE, ALERT AND ORIENTED. SITTING ON SIDE OF BED. RESPIRATIONS REGULAR. LUNGS SOUND CLEAR. PATIENT STIL ON O2 VIA NC AT 2L/MIN. IV INFUSING NS BOLUS OF 250ML/HR.
[2017-01-05 07:45] VITALS: BP 91/51
--- NOTE | 2017-01-05 07:46 | NUR ---
BOLUS COMPLETED. BP 91/51 MAP 64 HR 80 O2 SAT 100% ON 2L NC. ON REVERSE ISOLATION FOR LOW WBC COUNT.
[2017-01-05 09:29] VITALS: BP 108/65
--- NOTE | 2017-01-05 12:36 | NUR ---
AT 0840 - SEEN BY DR PALENCIA DURING MORNING ROUNDS. MEDICAL TEAM DOCTORS, KOLTON AMATO AND MYSELF PRIMARY NURSE ALSO PRESENT. DR PALENCIA SPOKE WITH PATIENT ABOUT CONTINUING PRESENT TREATMENT PLAN AND ANSWERED PATIENT'S QUESTIONS. AT 0900 - PATIENT GIVEN PRINTED INFORMATION ON RALTEGRAVIR, EMTRICITABINE AND PENTAMIDINE. AT 1200 - PATIENT SITTING IN CHAIR. FAMILY AT BEDSIDE. MOTHER BROUGHT IN A FORM THAT NEEDS TO BE COMPLETED BY DOCTOR. FORM GIVEN TO DR SANDOVAL.
--- NOTE | 2017-01-05 16:39 | NUR ---
QUIET AFTERNOON. FAMILY VISITING. RESPIRATIONS REGULAR WITHOUT C/O SOB. USES SUPPLIMENTAL O2 VIA NC ON AND OFF. O2 SAT 92% ON ROOM AIR. 100% ON O2. BETTER APPETITE TODAY. IV INFUSION REMAINS AT 100ML/HR NS.
[2017-01-05 17:10] VITALS: BP 111/68
--- NOTE | 2017-01-05 17:33 | NUR ---
PATIENT HAS BEEN PROVIDED WITH PRINTED INFORMATION ON HIV/AIDS, CD4/T WELL CURRENT MEDS. PATIENT APPEARS RESPONSIVE TO EDUCATION.
--- NOTE | 2017-01-05 18:55 | NUR ---
VSS AND WNL. AFEBRILE. IV REMAINS AT 100ML/HR. IV SITE PATENT WITH NO REDDNESS OR SWELLING. NO SOB. AMBULATORY IN ROOM. EATING A REGULAR DIET WITH IMPROVED APPETITE. REMAINS ON REVERSE ISOLATION. WILL ENDORSE CARE TO NIGHT NURSE.
--- NOTE | 2017-01-05 20:07 | NUR ---
PT IS A/O X4, VERBAL RESPONSIVE, ABLE TO TELL WHAT HE NEEDS. LUNG SOUND DIM BILATERAL, NO COUGH, DENY ANY RESPIRATORY DISTRESS AT THIS MOMENT, PT IS ON 2L/MIN O2 VIA NC. PO2 100%, PT DENY ANY CHEST PAIN OR DISCOMFORT, BOWEL SOUND PRESENT ALL 4 QUADRANTS, NO DISTENTION, NO TENDER. PEDAL PULSE PRESENT BOTH FEET, NO EDEMA NOTED, IV AT RIGHT FA, NO LEAKING, NO INFILTRATION. PT CONTINUE ON NEUTROPENIC ISOLATION. ALL ADLS ASSIST, ALL NEED MET, CALL LIGHT IN REACH, WILL CONTINUE TO MONITOR.
[2017-01-05 21:57] VITALS: BP 106/69
--- NOTE | 2017-01-06 05:03 | NUR ---
PT IS SLEEPING, AWAKE BY VOICE, VERBAL RESPONSIVE, DENY ANY RESPIRATORY DISTRESS, DENY ANY PAIN OR DISCOMFORT, IV AT RIGHT FA, NO LEAKING, NO INFILTRATION. PT CONTINUE TON NEUTROPENIC ISOLATION. ALL ADLS ASSIST, ALL NEED MET, CALL LIGHT IN REACH, WILL CONTINUE TO MONITOR.
[2017-01-06 05:53] VITALS: BP 117/82
[2017-01-06 07:30] VITALS: BP 125/81
--- NOTE | 2017-01-06 07:33 | NUR ---
RECEIVED PATIENT FROM NIGHT NURSE. AWAKE, ALERT AND ORIENTED. REPORTS FEELING BETTER AND APPEARS TO HAVE A POSITIVE ATTITUDE. RESPIRATIONS REGULAR. NO SOB. PATIENT HAS BEEN OFF SUPPLIMENTAL O2. IV INFUSING NS AT 100ML/HR. ON NEUTROPENIC ISOLATION FOR LOW WBC.
[2017-01-06 08:35] VITALS: BP 117/82
--- NOTE | 2017-01-06 09:32 | NUR ---
AT 0815 - SEEN BY DR LUNSFORD DURING MORNING ROUNDS. MEDICAL TEAM DOCTORS, KOLTON AMATO AND MYSELF PRIMARY NURSE ALSO PRESENT. DR LUNSFORD SPOKE WITH PATIENT ABOUT CURRENT PREATMENT AND PROGRES WLL PLAN OF CARE AND PLAN FOR DC. ALSO ANSWERED PATIENT'S QUESTIONS. AT 0915 - TODAY'S DOSE OF IV PENTAM IN PROGRESS.
--- NOTE | 2017-01-06 10:33 | NUR ---
RFA IV SITE SUDDENLY BECAME RED AND INFLAMMED DURING PENTAM INFUSION. INFUSION STOPPED. IV RESITED IN L HAND AND IV INFUSION RESUMED.
[2017-01-06 17:55] VITALS: BP 110/64
--- NOTE | 2017-01-06 18:21 | NUR ---
VSS AND WNL. REMAINS AFEBRILE. IV INFUSING NS AT 100ML/HR. PATIENT HAS BETTER APPETITE TODAY. HAS BEEN EATING MORE FOOD. TAKING FREE FLUIDS PO. AMBULATES IN ROOM. APPEARS TO HAVE POSITIVE ATTITUDE. WILL ENDORSE CARE TO NIGHT NURSE.
--- NOTE | 2017-01-06 19:32 | NUR ---
PT IS A/O X4, VERBAL RESPONSIVE, ABLE TO TELL WHAT HE NEEDS. LUNG SOUND SLIGHTLY WHEEZING ELLEN, DENY ANY SOB AT THIS MOMENT, PO2 96% IN ROOM AIR, PT DENY ANY CHEST PAIN OR DISCOMFORT, BOWEL SOUND PRESENT ALL 4 QUADRANTS, NO DISTENTION, NO TENDER. PEDAL PULSE PRESENT BOTH FEET, NO EDEMA, IV AT LEFT HAND, NO LEAKING, NO INFILTRATION. ALL ADLS ASSIST, ALL NEED MET, CALL LIGHT IN REACH, WILL CONTINUE TO MONITOR.
[2017-01-06 21:48] VITALS: BP 112/69
--- NOTE | 2017-01-06 23:01 | NUR ---
DR. CORTEZ CAME CHECK THE PT, GIVE ORDER TO DECREASE PREDISIONE TO 40MG QD, ORDER RECEIVED AND CARRIED OUT. WILL CONTINUE TO MONITOR THE PT.
--- NOTE | 2017-01-07 05:02 | NUR ---
PT IS A/O X4, VERBAL RESPONSIVE, DENY ANY RESPIRATORY DISTRESS, DENY ANY PAIN OR DISCOMFORT, IV AT LEFT HAND, NO LEAKING, NO INFILTRATION. ALL ADLS ASSIST, ALL NEED MET, CALL LIGHT IN REACH, WILL CONTINUE TO MONITOR.
[2017-01-07 05:22] VITALS: BP 135/75
--- NOTE | 2017-01-07 07:10 | NUR ---
RECEIVED Pt. AAOX4, RESPIRATIONS EVEN AND UNLABORED. Pt. INSTRUCTED TO USE IS. DENIES PAIN/DISCOMFORT. NO DISTRESS NOTED. IVF RUNNING TO IV AT LEFT HAND PATENT AND INTACT. ON NEUTROPENIC PRECAUTIONS. Pt. AMBULATORY. BED LOW/LOCKED. CALL LIGHT IN REACH.
--- NOTE | 2017-01-07 08:00 | NUR ---
MADE ROUNDS WITH DR. LUNSFORD AND MEDICINE TEAM, AWAITING PCP RESULTS AND CONTINUE PLAN OF CARE. Pt. AGREED.
[2017-01-07 10:46] VITALS: BP 103/65
--- NOTE | 2017-01-07 11:03 | NUR ---
REPORTED TO DR. GAFFNEY THAT AFB IS POSITIVE. AIRBORNE PRECAUTIONS STARTED.
--- NOTE | 2017-01-07 11:40 | NUR ---
IV AT LEFT HAND SALINE LOCKED.
--- NOTE | 2017-01-07 13:54 | NUR ---
Follow-up Nutrition Assessment Dx:Pneumonia Labs: (01/04) B, Cr:0.6L, Ca:8.1L, WBC:2.1L, H/H:10.3/30L Meds: Neutra-phos, Prednisone, NS IV, Zofran, Zithromax, Levaquin Diet: Regular with Boost Plus TID PO intake: (01/05) B:20% (01/06)D:100% Weights: admit wt:73kg, 161# (01/07) pt sitting in chair eating lunch, unable to weigh Skin: intact Edema: none Last BM:01/06 Pt was admitted with poss Pneumocystis Pneumonia,Tuberculosis ruled out. Per progress note 01/07, pt states he slept well and feels his energy continues to return. Pt was able to shower without substantial fatifue and is tolerating his diet and defacating and urinating without any issues. Per bed huddle this morning, they are currently awaiting PCP smear which will be available on Tuesday (01/10). During visit, observed pt eating lunch. Pt states that both his appetite and energy have been coming back. Pt ate mostly all his breakfast (1/2 oatmeal, 2 cereals, 2 milks, yogurt and drank some of his Boost plus) Pt is also eating outside food and ate 75% of lunch. Estimated Nutritional Needs unchanged from prior assessment:CBW:73kg Energy: 2190-2555kcal/day (30-35kcal/kg for increased metabolic demands, HIV) Protein: 73-110g/day (1-1.5g/day for increased metabolic demands, HIV) Fluid: 2190ml/day (30ml/kg for maintenance) or per doctor Nutrition Diagnosis 1. Increased nutritional needs related to increased metabolic demands as evidenced by pt with HIV rapid antigen test positive (ongoing) 2. Unintentional wt loss related to lack of appetite over the past 6 months secondary to possible pneumonia, HIV positive as evidenced by 34% wt loss within the past 6 months, significant (ongoing) Intervention 1. Continue with current diet order and encourage PO intake. 2. Continue weekly weights. Monitor/Evaluate Previous goal: PO intake at least 75% of estimated needs; no further wt loss (met) Goal: PO intake at least 75% of estimated needs Monitor: PO intake, Labs, GI function F/U in 7 days as moderate risk:01/14
--- NOTE | 2017-01-07 13:55 | NUR ---
1. Continue with current diet order and encourage PO intake. 2. Continue weekly weights.
[2017-01-07 17:12] VITALS: BP 124/71
--- NOTE | 2017-01-07 18:23 | NUR ---
Pt. AAOX4, RESPIRATIONS EVEN AND UNLABORED. DENIES PAIN/DISCOMFORT. ON AIRBORNE PRECAUTIONS. NO DISTRESS NOTED. IV SALINE LOCKED AT LEFT HAND. BED LOW/LOCKED. CALL LIGHT IN REACH.
--- NOTE | 2017-01-07 19:30 | NUR ---
RECEIVED PT FROM PREVIUOS SHIFT NURSE PT AOX4. MED SURG PT. DENIES CP/PRESSURE. PULSES PRESENT, NO EDEMA NOTED. B/L WHEEZES HEARD UPON AUSCULATION, DENIES SOB/DIFFICULTY BREATHING. BOWEL SOUNDS ACTIVE. VOIDS FREELY. GENERALIZED WEAKNESS, AMBULATORY WITH STEADY GATE. SKIN INTACT, BUE RASH LIGHTLY NOTED. IV IN L.HAND INTACT AND PATENT. BED IN LOWEST POSITION. CALL LIGHT WITHIN REACH. WILL CONTINUE TO MONITOR.
[2017-01-07 21:48] VITALS: BP 108/72
[2017-01-08 06:13] LABS: PLATELET COUNT 205 x10^3mcL (130-400); RED CELL DISTRIBUTION WIDTH 13.4 % (11.5-14.5)
[2017-01-08 06:18] LABS: CALCIUM 8.6 mg/dL (8.5-10.1); CARBON DIOXIDE 27.5 mmol/L (21-32); CHLORIDE SERUM 107 mmol/L (98-107); CREATININE SERUM 0.9 mg/dL (0.7-1.3); GFR1 > 60 mL/min; GLUCOSE SERUM 83 mg/dL (74-106); POTASSIUM SERUM 4.1 mmol/L (3.5-5.1); SODIUM SERUM 142 mmol/L (136-145)
[2017-01-08 06:21] VITALS: BP 115/70
[2017-01-08 06:30] LABS: BASOPHIL % 0 % (0-2)
--- NOTE | 2017-01-08 07:46 | NUR ---
PT RESTING IN BED. NO ACUTE CHANGES OVER NIGHT. PT STATED HE SLEPT THROUGH THE NIGHT WITH NO PROBLEMS. BED IN LOWEST POSITION. CALL LIGHT WITHIN REACH. WILL CONTINUE TO MONITOR.
[2017-01-08 10:35] VITALS: BP 94/56
--- NOTE | 2017-01-08 11:00 | NUR ---
RECEIVED PT FROM ANA GONZALES. PT HAS HIS EYES CLOSED, NO S/S OF PAIN NOTED. IV SITE PATENT AND INTACT. SIDE RAILS UPX2. CALL LIGHT ON REACH. WILL CONT TO MONITOR
--- NOTE | 2017-01-08 17:19 | NUR ---
PT SITTING ON THE EDGE OF THE BED, AAOX4. NO C/O PAIN AND SOB. FAMILY AT BEDSIDE. SIDE RAILS UPX2. CALL LIGHT ON REACH. WILL CONT TO MONITOR
[2017-01-08 18:13] VITALS: BP 105/67
--- NOTE | 2017-01-08 19:38 | NUR ---
RECEIVED PT FROM PREVIOUS SHIFT NURSE. PT AOX4. MED SURG PT. DENIES CP/PRESSURE. PULSES PRESENT, NO EDEMA NOTED. LUNG SOUNDS CLEARING, SOME WHEEZES HEARD. ON RA. DENIES SOB/DIFFICULTY BREATHING. BOWEL SOUNDS ACTIVE. VOIDS FREELY. AMBULATORY. SKIN INTACT. IV IN L. HAND, INTACT AND PATENT. BED IN LOWEST POSITION. CALL LIGHT WITHIN REACH. WILL CONTINUE TO MONITOR.
[2017-01-08 21:42] VITALS: BP 94/61
--- NOTE | 2017-01-09 03:48 | NUR ---
PT RESTING IN BED. RR EVEN AND UNLABORED. NO ACUTE DISTRESS NOTED. BED IN LOWEST POSITION. CALL LIGHT WITHIN REACH. WILL CONTINUE TO MONITOR.
[2017-01-09 06:05] VITALS: BP 115/65
--- NOTE | 2017-01-09 07:30 | NUR ---
PATIENT IS SITTING UP IN BED AWAKE ALERT AND ORIENTED. VERY PLEASANT AND ABLE TO MAKE NEEDS KNOWN. PATIENT REMAINS IN AIRBORNE ISOLATION. HL LEFT HAND PATENT. PER PATIENT HE SLEPT WELL LAST NOC. WHEEZES NOTED RT UPPER LOBE. OCCAS PRODUCTIVE COUGH NOTED, WITH CLEAR SPUTUM. DENIES ANY SOB OR PAIN. REMINDED TO USE I.S. 10X/HR W/A. AMBULATES TO THE BATHROOM PRN, TOLERATED WELL. NO EDEMA NOTED, SCD'S IN PLACE. WILL CONTINUE TO MONITOR.
--- NOTE | 2017-01-09 07:59 | NUR ---
PATIENT'S PLAN OF CARE WAS DISCUSSED AND REVIEWED WITH SHOE REPAIR COBBLER:LYNETTE BLAKE
--- NOTE | 2017-01-09 09:57 | NUR ---
DR AGUIAR AND MEDICAL TEAM INTO SEE PATIENT AND DISCUSS PLAN OF CARE.
[2017-01-09 10:11] VITALS: BP 119/69
--- NOTE | 2017-01-09 13:08 | NUR ---
PATIENT RESTING IN BED, PER PATIENT HE WANTS TO RET A WHILE THEN GET OOB AND TAKE A SHOWER. DENIES ANY PAIN OR SOB. GENERALIZED WEAKNESS NOTED. HL PATENT. PATIENT REMAINS IN ISOLATION. NO ACUTE DISTRESS NOTED.
[2017-01-09 14:20] VITALS: BP 119/69
--- NOTE | 2017-01-09 17:56 | NUR ---
PATIENT IS SITTIING UP ON THE SIDE OF THE BED. SHOWERED THIS AFTERNOON AND HAD VISITORS. DENIES ANY SOB OR PAIN. HL PATENT. PATIENT PERFERS TO WEAR HIS OWN CLOTHES. LINEN CHANGE DONE. APPEARS TO BE IN GOOD SPIRITS, COLORING AT THIS TIME. NO ACUTE DISTRESS NOTED. WILL CONTINUE TO MONITOR.
[2017-01-09 18:00] VITALS: BP 97/51
--- NOTE | 2017-01-09 18:55 | NUR ---
I HAVE REVIEWED THE DATA COLLECTION BY VINNY (NAME):LYNETTE BLAKE ENTERED ON (DATE/TIME):01/09/17 7A-7P I CONCUR WITH THE DATA AND ANY EXCEPTIONS OR COMMENTS ARE LISTED BELOW:
--- NOTE | 2017-01-09 20:05 | NUR ---
RECEIVED PT FROM PREVIOUS SHIFT NURSE. PT AOX4. MED SURG PT. PULSES PRESENT, NO EDEMA NOTED. WHEEZE HEARD IN R. UPPER LOBE. DENIES SOB/DIFFICULTY BREATHING. BOWEL SOUNDS ACTIVE. VOIDS FREELY. GENERALIZED WEAKNESS, AMBULATORY WITHOUT ASSISTANCE. SKIN INTACT. IV IN L. HAND INTACT AND PATENT. BED IN LOWEST POSITION. CALL LIGHT WITHIN REACH. WILL CONTINUE TO MONITOR.
[2017-01-09 22:05] VITALS: BP 109/67
[2017-01-10 02:30] VITALS: BP 109/67
--- NOTE | 2017-01-10 03:00 | NUR ---
PT RESTING IN BED. RR EVEN AND UNLABORED NO ACUTE DISTRESS NOTED. CALL LIGHT WITHIN REACH. BED IN LOWEST POSITION. WILL CONTINUE TO MONITOR.
[2017-01-10 06:03] VITALS: BP 108/63
--- NOTE | 2017-01-10 07:24 | NUR ---
PT RECEIVED. AT THIS TIME THE PATIENT IS RESTING IN BED. AAOX4. PATIENT SHOWS NO SIGNS OF ACUTE DISTRESS. RESPIRATIONS ARE EVEN AND UNLABORED ON ROOM AIR. PT DENIES PAIN. PATIENT IS AMBULATORY WITH STEADY AND BALANCED GAIT. IV IS PATENT WITH NO SIGNS OF INFECTION, CLEAN AND DRY DRESSINGS. ALL SAFETY MEASURES ARE IN PLACE. WILL CONTINUE TO MONITOR PATIENT.
[2017-01-10 09:10] VITALS: BP 113/65
--- NOTE | 2017-01-10 13:10 | NUR ---
PATIENT C/O HEADACHE. PATIENT WAS PROVIDED WITH A TYLENOL PER REQUEST. STATED THAT TYLENOL WORKED IN THE PAST. PATIENT ENVIRONMENT IS KEPT QUIET. RESPIRATIONS ARE EVEN AND UNLABORED ON ROOM AIR. PATIENT DENIES DIZZINESS. CALL LIGHT WITHIN REACH. WILL CONTINUE TO MONITOR. ALL SAFETY PRECAUTIONS IN PLACE.
--- NOTE | 2017-01-10 14:20 | NUR ---
PATIENT STATES THAT HEADACHE WENT AWAY. HE STATES THAT HE THINKS HE NEEDED TO DRINK SOME MORE WATER AND THAT ONCE HE HAD MORE WATER AND MORE FOOD HE IMMEDIATELY FELT BETTER. PATIENT DENIED ANY FURTHER INTERVENTIONS FOR HEADACHE STATING THAT THE HEADACHE IS RESOLVED.
[2017-01-10 17:00] VITALS: BP 96/52
[2017-01-10 18:22] VITALS: BP 121/74
--- NOTE | 2017-01-10 19:20 | NUR ---
REPORT GIVEN TO SUPPLY CHAIN VICE PRESIDENT NURSE. AT THIS TIME THE PATIENT IS INTERACTING WITH VISITORS AT BEDSIDE. NO SIGNS OF ACUTE DISTRESS ARE NOTED AT THIS TIME. ALL SAFETY MEASURES IN PLACE.
--- NOTE | 2017-01-10 20:00 | NUR ---
RECEIVED PT IN BED, ALERT AND ORIENTED. ABLE TO VERBALIZE NEEDS. DENIES HEADACHE/DIZZINESS. RESP. EVEN AND UNLABORED. ON ROOM AIR, NO DISTRESS NOTED.NO TELE.DENIES CP OR PRESSURE. AFEBRILE AND VITAL SIGNS STABLE. HL TO LT HAND, INTACT AND PATENT. AMBULATORY. VOIDING FREELY. ASSISTED WITH HS CARE. NO COMPLAINTS NOTED AT THIS TIME. ON AIRBORNE ISOLATION, WILL MAINTAIN PRECAUTIONS. CALL LIGHT WITHIN REACH. WILL CONTINUE TO MONITOR.
[2017-01-10 21:29] VITALS: BP 94/53
--- NOTE | 2017-01-10 22:16 | NUR ---
REFUSED IVF, HEPLOCKED.DR MOORE AWARE.
[2017-01-11] VITALS (7 sets, daily range): BP systolic 84–104; BP diastolic 37–61
--- NOTE | 2017-01-11 00:36 | NUR ---
NO COMPLAINTS NOTED. RESP. EVEN AND UNLABORED. ASLEEP, EASILY AROUSABLE. NO DISTRESS NOTED. WILL CONTINUE TO MONITOR.
--- NOTE | 2017-01-11 06:00 | NUR ---
SLEPT WELL. NO COMPLAINTS NOTED. RESP. EVEN AND UNLABORED.NO DISTRESS NOTED. HL INTACT AND PATENT. KEPT COMFORTABLE.WILL CONTINUE TO MONITOR.
--- NOTE | 2017-01-11 06:25 | NUR ---
TEMP. READING SHOWS 101.0 , COOLING MEASURES APPLED. TYLENOL 650PO GIVEN ORDERED. WILL CONTINUE TO MONITOR.
--- NOTE | 2017-01-11 07:30 | NUR ---
AAO TIMES 4. NO TELE, MED SURG PATIENT. LUNGS MODERATELY DIMINISHED. O2 SAT ON RA 98%. BS'S ACTIVE TIMES 4. CALLE STRONG. SCD BLE. COOPERATIVE. NO C/O PAIN. NO SOB. IV SITE LEFT HAND PATENT, CDI. MEDICAL ROUNDS OCCURED WITH DR MCGINNIS AND THE MEDICINE TEAM. THE PLAN TODAY IS TO POSSIBLY STAY BECAUSE HE RAN A FEVER OF 101 THIS AM, OTHERWISE DISCHARGE PLANNING WAS GOING TO START TODAY.
--- NOTE | 2017-01-11 08:58 | NUR ---
Infection Control Note: 21 year old male admitted for SOB and Pneumonia that has not improved dispite antibiotics. Patient had a greater that 100 LB weight loss over the past year. CT scan shows ground glass density suspicious for possible TB. Initial Hiv testing shows reactive. Reported to [facility] as suspect TB on 12/29/16. 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 Patient continues in airborne Isolation.
--- NOTE | 2017-01-11 11:25 | NUR ---
TYLENOL 650 MG PO WAS GIVEN AT 1119. I SPOKE WITH DR GAFFNEY ABOUT PT'S FEAR OF THE SULFA/BACTRIM IV THAT WILL BE GIVEN. BENADRYL 25 MG IVP WAS GIVEN AT 1105 AND THE TYLENOL ABOVE TO PREVENT A REACTION. HE WAS C/O NAUSEA, ZOFRAN 4 MG IVP WAS GIVEN AT 1105.
--- NOTE | 2017-01-11 13:01 | NUR ---
PT'S BP IS 93/37. TEMP 101.7, TYLENOL WAS ALREADY GIVEN AT 1119. I NOTIFIED DR GAFFNEY OF THE ABOVE. HE TOLD ME HE APPLIED 2L NC OXYGEN, AND HE IS ORDERING NS 80 FOR HIS BP. I WENT IN TO SEE PT AND HE SAID HE STILL FELT SOB, I INCREASED HIS O2 TO 3L NC AND HAD HIM SIT UP HIGHER IN BED.
--- NOTE | 2017-01-11 17:30 | NUR ---
PT'S BP IS 84/42 IN ONE ARM, AND 83/[address] GAFFNEY WAS TOLD, AND HE SAID HE WOULD ORDER A BOLUS. I RE PAGED HIM THERE IS NO ORDER YET.
--- NOTE | 2017-01-11 17:38 | NUR ---
I FOUND DR GAFFNEY ON AND REMINDED HIM THAT PT'S BP IS 84/42 AND 83/36.
--- NOTE | 2017-01-11 17:55 | NUR ---
I STARTED THE 250 ML NS BOLUS.
--- NOTE | 2017-01-11 17:57 | NUR ---
AAO TIMES 4. NO TELE. FRIENDS PRESENT IN ROOM, HE IS HAPPY THEY ARE THERE. IV SITE TO LEFT HAND PATENT, CDI. NO C/O PAIN. O2 OFF, PT STATES HE DOESNT FEEL HE NEEDS IT ANYMORE.
--- NOTE | 2017-01-11 19:30 | NUR ---
PT IS A/O X4, VERBAL RESPONSIVE, ABLE TO TELL WHAT HE NEEDS. LUNG SOUND WHEEZING ELLEN, DENY ANY RESPIRATORY DISTRESS, DENY ANY CHEST PAIN OR DISCOMFORT, BOWEL SOUND PRESENT ALL 4 QUADRANTS, NO DISTENTION, NO TENDER. PEDAL PULSE PRESENT BOTH FEET, NO EDEMA, IV AT LEFT HAND, NO LEAKING, NO INFILTRATION. ALL ADLS ASSIST, ALL NEED MET, CALL LIGHT IN REACH, WILL CONTINUE TO MONITOR.
--- NOTE | 2017-01-11 22:11 | NUR ---
PT REFUSED TO TAKE BACTRIM DS. STATE HE HAD ALLERGY REACTION TO THE MEDICATION BEFORE, HE STARTED RASH ON ALL EXTREMITIES. REPORT TO DR. MOORE, WENT TO ROOM EXPLAIN THE MEDICATION TO PT. PT VERBAL UNDERSTAND BUT STILL REFUSE TO TAKE BACTRIM DS TONIGHT, BUT HE STATE HE IS WILLING TO TAKE TOMORROW MORNING. MADE AWARE, WILL CONTINUE TO MONITOR.
--- NOTE | 2017-01-12 05:09 | NUR ---
PT IS SLEEPING, AWAKE BY TOUCH, DENY ANY RESPIRATORY DISTRESS, DENY ANY PAIN OR DISCOMFORT,IV AT LEFT HAND, NO LEAKING, NO INFILTRATION. ALL ADLS ASSIST, ALL NEED MET, CALL LIGHT IN REACH, WILL CONTINUE TO MONITOR.
[2017-01-12 05:26] VITALS: BP 105/66
--- NOTE | 2017-01-12 07:45 | NUR ---
RECEIVED AWAKE, ALERT AND ORIENTED. NO ACUTE RESP. DISTRESS NOTED. NO C/O PAIN OR DISCOMFORT. PT TOLERATED WELL WITH MEALS. VS WNL. CALL LIGHT WITHIN REACH. WILL CONTINUE W/PLAN OF CARE.
[2017-01-12 08:26] VITALS: BP 109/62
--- NOTE | 2017-01-12 09:12 | NUR ---
PT HAS TEMP.103.4, TYLENOL GIVEN AND COOLING MEASURES INITIATED.
--- NOTE | 2017-01-12 14:55 | NUR ---
RESTING IN BED. NO DISTRESS. FAMILY AT BEDSIDE.
--- NOTE | 2017-01-12 15:48 | NUR ---
CALLED TO [facility],[phone], SPOKE TO EL REGARDING CLEARANCE FOR DISCHARGE BY RN. WRIGHT AND DR. RENDON. ACCORDING TO REZA REYES SUBMITTED DOCUMENT ON 01/04, STATED NO NEED APPROVAL FROM [facility] DEPARTMENT, BECAUSE THERE IS NO DOCUMENTATION FROM OUR PHYSICIAN STATES PATIENT HAS TB. AT THIS MOMENT, WE ARE NO NEED APPROVAL FROM [facility] DEPARTMENT FOR DISCHARGE.
[2017-01-12 17:10] VITALS: BP 102/53
--- NOTE | 2017-01-12 18:45 | NUR ---
PT REMAINS IN NO DISTRESS. AWAKE, ALERT AND ORIENTED. NNO C/O PAIN OR DISCOMFORT AT THIS TIME. NO CHANGES IN VS. HL PATENT. FAMILY AT BEDSIDE. CALL LIGHT WITHIN REACH. WILL BE ENDORSED TO INCOMING SHIFT.
--- NOTE | 2017-01-12 19:28 | NUR ---
AWAKE AND ALERT, ORIENTED X 4. SPEECH CLEAR AND APPROPRIATE. COLORING A BOOK AT THIS TIME. BREATHING EVEN AND UNLABORED ON ROOM AIR. LUNG SOUNDS DIMINISHED, ABLE TO COMPLETE SENTENCES WITHOUT DIFFICULTY. MED SURG PT. DENIES HAVING PAIN. SALINE LOCKED.
[2017-01-12 21:37] VITALS: BP 97/52
--- NOTE | 2017-01-12 23:27 | NUR ---
AWAKE AND ALERT, WATCHING TV AT THIS TIME. ON AIRBORNE ISOLATION.
[2017-01-13 05:34] VITALS: BP 101/56
--- NOTE | 2017-01-13 06:13 | NUR ---
EYES CLOSED, EASILY AWAKENED. BREATHING EVEN AND UNLABORED ON 2LPM OF O2 VIA NC. KEPT ON AIRBORNE ISOLATION.
--- NOTE | 2017-01-13 06:14 | NUR ---
LATE ENTRY: 0000H - DR. CORTEZ IN PT'S ROOM ASSESSING PT.
--- NOTE | 2017-01-13 08:15 | NUR ---
ALERT AND ORIENTED. S1 AND S2 HEARD ON AUSCULTATION. PULSES PRESENT AND EQUAL, NO EDEMA NOTED, CAP REFILL <3 SEC. LUNG SOUNDS DIMINISHED, WHEEZES NOTED IN BILATERAL UPPER LOBES, PRODUCTIVE COUGH, REPORTS YELLOW SPUTUM AT TIMES, BREATHING UNLABORED AND EVEN, ON RA. NO SOB NOTED. LBM 01/12/17, REPORTED NORMAL FOR PATIENT. REPORTS NO PROBLEM URINATED, REPORTS UP TO THE BATHROOM FREQUENTLY. ABLE TO MOVE ALL 4 EXTREMETIES WELL, AMB IN ROOM. SKIN WARM, DRY AND INTACT. REPORTS H/A 07/23. IV SL, WNL.
--- NOTE | 2017-01-13 09:00 | NUR ---
AM ROUNDS DONE BY DR. LUNSFORD AND MEDICAL TEAM, PLAN TO CONT. WITH CURRENT TX AND WAITING FOR COUNTY CLEARANCE FOR DISCHARGE. PT AGREED WITH PLAN, ALL CONCERNS ADDRESSED.
--- NOTE | 2017-01-13 09:22 | NUR ---
TOLERATED MORNING MED WELL, X RAY IN ROOM
[2017-01-13 10:00] VITALS: BP 109/65
--- NOTE | 2017-01-13 11:28 | NUR ---
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 Notified [facility] Department and will request Diacharge Clearance. This will be home dischrge with no isolation and follow up at the [facility].
[2017-01-13 14:00] VITALS: BP 90/57
[2017-01-13 17:17] VITALS: BP 80/47
--- NOTE | 2017-01-13 18:15 | NUR ---
RESTING BEDSIDE, COLORING, NO DISTRESS NOTED, BREATHING UNLABORED AND EVEN. DENIES ANY PAIN AT THIS TIME
--- NOTE | 2017-01-13 19:15 | NUR ---
NURSING CO-SIGN THE DOCUMENTATION ENTERED BY THE RN FAINA HAS BEEN REVIEWED. REVIEWED/CO-SIGNED BY: Liya Mason DOCUMENTATION BY ARCENIO ROBERTS
--- NOTE | 2017-01-13 19:22 | NUR ---
AWAKE AND ALERT, ORIENTED X 4. SPEECH CLEAR AND APPROPRIATE. STATED HAS BEEN AMBULATING IN HALLWAY. DENIES SHORTNESS OF BREATH. INSTRUCTED TO WEAR MASK WHEN WALKING IN HALLWAY. VERBALIZED UNDERSTANDING. ON ROOM AIR, BREATHING EVEN AND UNLABORED. SALINE LOCK TO LEFT HAND. DENIES HAVING PAIN.
[2017-01-13 20:43] VITALS: BP 93/55
[2017-01-14] VITALS (8 sets, daily range): BP systolic 68–106; BP diastolic 36–68
--- NOTE | 2017-01-14 06:25 | NUR ---
eyes closed, breathing even and unlabored. in no acute distress during shift. kept on airborne isolation.
--- NOTE | 2017-01-14 07:05 | NUR ---
AAOX4 ABLE TO VERBALIZE NEEDS WITH CLEAR AND COHERENT SPEECH, LUNGS CTA, DENIES SOB, SYM CHEST EXPANSION, NO RESPIRATORY DISTRESS NOTED OR REPORTED, STATES S&S THAT "BROUGHT HIM TO ER HAVE RESOLVED" REINSTRUCTED TO REPORT CHANGES IN HIS TEMPERATURE, CALL LIGHT WITHIN REACH, WILL CONTINUE TO PROVIDE CARE.
--- NOTE | 2017-01-14 08:45 | NUR ---
Pt SPO2 DESATRATING TO 88%, 2L N/C ADMINISTERED. WILL MONITOR.
--- NOTE | 2017-01-14 08:50 | NUR ---
TEMP IS 104.2, ICE PACKS APPLIED AT ELLEN AXILA AND BEHIND NECK, HEAVY LINNEN REMOVED, THERMOSTAT IN ROOM CURRENTLY 68, WILL ADMIN TYLENOL ORDERED AND NOTIFY DR BERGER, CALL LIGHT WITHIN REACH, PT DENIES DISCOMFORT AT THIS TIME.
--- NOTE | 2017-01-14 10:45 | NUR ---
BOLUS OF 500ML NS INFUSING, PT IS RESTING IN BED, DENIES CHILLS, SY OR DIZZINESS, CALL LIGHT WITHIN REACH, WILL CONTINUE TO PROVIDE CARE.
--- NOTE | 2017-01-14 12:56 | NUR ---
PATIENT REMAINS ASYMPTOMATIC FOR EPISODE OF HYPOTENSION, DENIES CHILLS, DIZZINESS, VISUAL OR HEARING CHANGES, REPORTS CHRONIC EPISODES OF ORTHOSTATIC HYPOTENSION, NEW ORDER FOR SECOND BOLUS NS 500ML, CALL LIGHT WITHIN REACH, WILL CONTINUE TO PROVIDE CARE.
--- NOTE | 2017-01-14 13:30 | NUR ---
LATE ENTRY 1230: C/O PAIN AT LEFT WRIST AT IV INSERTION SITE, NO REDNESS OR SWELLING NOTED, FLUSHED WITH NS 10ML, NO SIGNS OF INFILTRATION NOTED. LATE ENTRY 1254: BOLUS OF NS INFUSING WITHOUT PAIN, WARMTH OR DISCOMFORT AT IV SITE, CALL LIGHT WITHIN REACH, WILL CONTINUE TO PROVIDE CARE.
--- NOTE | 2017-01-14 14:03 | NUR ---
SECOND IV BOLUS OF NS 500ML COMPLETED, BP 80/52, HR 85, PT REMAINS ASYMPTOMATIC FOR HYPOTENSION, DR BERGER MADE AWARE, WILL F/U WITH NEW OR CHANGED ORDERS.
--- NOTE | 2017-01-14 14:18 | NUR ---
INFECTION CONTROL NOTE: Recieved writen jonyard approval from [facility]. Patient to be discharged home without isolation. Notified Yael SWEET Charge nurse and Vannesa in Case Managment. Written Doucments placed on Chart.
--- NOTE | 2017-01-14 14:37 | NUR ---
PT'S IV W/ RESISTANCE WHEN FLASHING, PT MADE AWARE OF NEED TO START NEW IV LINE, PT REFUSING NEW IV, STATES "I'VE ALWAYS HAD LOW BLOOD PRESSURE, I FEEL FINE, I DO NOT FEEL WEAK OR DIZZY, I REALLY DON'T WANT TO BE POKED AGAIN," RISKS AND BENEFITS EXPLAINED, DR AB ABBASI, PT HAS DRANK ABOUT 3L OF WATER PO SINCE 0700.
--- NOTE | 2017-01-14 15:23 | NUR ---
Follow-up Nutrition Assessment Dx:Pneumonia Labs: (01/08) H/H:11.2/35L. CD4:19, %CD4:6.3 Meds: Pentam, Truvada, Prednisone, Zofran Diet: Regular with Boost TID Weights: admit: 73kg, 161# (01/14) 169#81kg. 8# wt gain since admit due to increased appetite and PO intake. Skin: intact Edema: none Last BM: 01/12 Per progress note 01/12, pt with fever this morning, however, is feeling better now and continues on IV medication PCP. Pt continunes to tolerate diet, toilet and shower. Discussed oral medications for continued PCP coverage on discharge. Pt was wary of bactrim trial yesterday amd with possibility of sulfa allergy less expensive options are becoming less viable solutions. During visit, pt states he is awaiting infectious disease to send paperwork to clear him and he can possibly discharge tomorrow. Pt continues with good appetite eating 100% of meals and outside food and has gained 8# since admit. Estimated Nutritional Needs unchanged from prior assessment:CBW:73kg Energy: 2190-2555kcal/day (30-35kcal/kg for increased metabolic demands, HIV) Protein: 73-110g/day (1-1.5g/day for increased metabolic demands, HIV) Fluid: 2190ml/day (30ml/kg for maintenance) or per doctor Nutrition Diagnosis 1. Increased nutritional needs related to increased metabolic demands as evidenced by pt with HIV rapid antigen test positive (ongoing) 2. Unintentional wt loss related to lack of appetite over the past 6 months secondary to possible pneumonia, HIV positive as evidenced by 34% wt loss within the past 6 motnhs, significant (ongoing) Intervention 1. Recommend continue with current diet order: Regular with Boost TID. Monitor/Evaluate Previous goal: PO intake at least 75% est needs; no further wt loss (met) Goal: PO intake at least 75% of estimated needs Monitor: PO intake, Labs, GI function F/U in14 days as low risk:01/28
--- NOTE | 2017-01-14 15:25 | NUR ---
1. Recommend continue with current diet order: Regular with Boost TID (provides 1080kcal and 42g pro)
--- NOTE | 2017-01-14 16:16 | NUR ---
ABLE TO AMBULATE IN HALLWAY WITHOUT FEELING DIZZY, STEADY GAIT NOTED, DENIES DISCOMFORT AT THIS TIME.
--- NOTE | 2017-01-14 17:37 | NUR ---
PT ACCEPTED NEW IV LINE, PLACED BY [facility] AT [facility] [address], DR BERGER WILL REENTER ORDER FOR NS BOLUS 1L.
--- NOTE | 2017-01-14 20:00 | NUR ---
AWAKE AND VERBALLY RESPONSIVE. ABLE TO MAKE NEEDS KNOWN. SKIN WARM AND DRY TO TOUCH. RESPIRATION EVEN AND UNLABORED. IVF NS 1LITER BOLUS GIVEN ORDERED TOLERATED WELL. IV SITE AT THE LFA INTACT AND PATENT. NO S/S OF IV INFILTRATION. WILL CONTINUE TO MONITOR.
--- NOTE | 2017-01-15 00:10 | NUR ---
EYES CLOSED , NO FACIAL GRIMACING NOTED. RESPIRATION EVEN AND UNLABORED. NO S/S OF PAIN/DISCOMFORT.
[2017-01-15 05:27] VITALS: BP 111/65
--- NOTE | 2017-01-15 05:41 | NUR ---
DENIES ANY PAIN/DISCOMFORT AT THIS TIME. NO SIGNIFUCANT CHANGES IN CONDITION. CALL LIGHT WITHIN REACH AND ANZWERED PROMPTLY. ALL NEEDS ATTENDED.
[2017-01-15 06:52] LABS: CALCIUM 8.5 mg/dL (8.5-10.1); CARBON DIOXIDE 26.9 mmol/L (21-32); CHLORIDE SERUM 108 mmol/L (98-107); CREATININE SERUM 1.2 mg/dL (0.7-1.3); GFR1 > 60 mL/min; GLUCOSE SERUM 73 mg/dL (74-106); POTASSIUM SERUM 4.5 mmol/L (3.5-5.1); SODIUM SERUM 141 mmol/L (136-145)
[2017-01-15 06:57] LABS: BASOPHIL % 0.1 % (0-2); PLATELET COUNT 193 x10^3mcL (130-400); RED CELL DISTRIBUTION WIDTH 13.9 % (11.5-14.5)
--- NOTE | 2017-01-15 07:00 | NUR ---
AAOX4 ABLE TO VERBALIZE NEEDS WITH CLEAR AND COHERENT SPEECH, TEMP WNL, DENIES SY OR DIZZINESS, DENIES GI DISTRESS, LUNGS DIM AT ELLEN BASES, DENIES SOB, ON ROOM AIR, NO RESPIRATORY DISTRESS NOTED, WILL CONTINUE TO PROVIDE CARE, CALL LIGHT WITHIN REACH.
--- NOTE | 2017-01-15 08:47 | NUR ---
TEMP 103.1, A/C TURNED ON, SHEETS REMOVED, ICE PACK PLACED, DOSE OF TYLENOL GIVEN ORDERED, WILL CONTINUE TO MONITOR FOR TEMP, SAFETY AND COMFORT.
[2017-01-15 09:13] VITALS: BP 102/65
[2017-01-15] MEDS ORDERED: TRUVADA 200 MG1 EACH PO (10:46)
[2017-01-15] MEDS ORDERED: ISENTRESS400 MG PO (10:46)
[2017-01-15] MEDS ORDERED: TYL325 PO (10:50)
[2017-01-15] MEDS ORDERED: MOT800 PO (10:50)
[2017-01-15] MEDS ORDERED: DARAPRIM25 MG PO (10:58)
[2017-01-15] MEDS ORDERED: CLINDAMYCIN HC300 MG PO (11:04)
[2017-01-15] MEDS ORDERED: LAC PO (11:36)
[2017-01-15 12:50] VITALS: BP 102/65
--- NOTE | 2017-01-15 14:03 | NUR ---
PT WAS DISCHARGED BUT DOSE OF PYRIMETHAMINE IS OUT OF STOCK AT OUTSIDE PHARMACY, DR BERGER CONSULTED WITH DR CORTEZ AND HE ADVICED AGAINST PT'S DISCHARGE FOR TODAY DUE TO HIS CONTINUED EPISODE OF FEVER THIS MORNING AND THE UNAVAILABILITY OF REQUIRED MEDICATION UNTIL 01/19/17, PATIENT VERBALIZED UNDERSTANDING OF INFORMATION AND AGREED TO STAY IN HOSPITAL ONE MORE DAY, ALL QUESTIONS ANSWERED, WILL CONTINUE TO PROVIDE CARE.
[2017-01-15 17:23] VITALS: BP 90/50
--- NOTE | 2017-01-15 17:52 | NUR ---
PT'S BP IS 90/50 (58), TEMP 97.7, DENIES SY, DIZZINESS, OR GENERALIZED WEAKNESS, REQUESTING TO SPEAK WITH DR BERGER REGARDING [place], PAGED.
--- NOTE | 2017-01-15 19:22 | NUR ---
SITTING UP AT EDGE OF BED, FRIEND VISITING, UNDER NO APPARENT DISTRESS, NO IV ACCESS AT THIS TIME, REMAINS ASYMPTOMATIC FOR HYPOTENSION, TEMP WNL AT THIS TIME, NO OTHER SIGNIFICANT CHANGES NOTED, REINSTRUCTED TO CONTINUE USING FACE MASK FOR HIS OWN PROTECTION, WILL ENDORSE CARE TO NIGHT NURSE.
--- NOTE | 2017-01-15 19:58 | NUR ---
AWAKE AND VERBALLY RESPONSIVE. ABLE TO MAKE NEEDS KNOWN. SKIN WARM AND DRY TO TOUCH. EXPRESSED THE DESIRE TO GO HOME, EXPLAINED TO TALK TO MD REGARDING HIS CONCERNS, VERBALIZED UNDERSTANING. CALL LIGHT WITHIN REACH .
[2017-01-15 21:32] VITALS: BP 105/59
--- NOTE | 2017-01-15 21:34 | NUR ---
DR CORTEZ CAME AND EXAMINED PATIENT, ORDERED TO PUT IV ACCESS , PT REQUESTED TO MD TO PUT IV TOMORROW AM BEFORE THE IV MEDICATIONS AT AROUND 9AM, PT WANTS TO BE FREE FRO IV ACCESS TONIGHT. DR CORTEZ AGREEABLE TO IT.
--- NOTE | 2017-01-16 01:00 | NUR ---
EYES CLSOED, NO FACIAL GRIAMCING NOTED. RESPRIATIONE VENA ND UNLABORED. NO S/S OF PAIN/DISCOMFORT. WILL CONTINUE TO MONITOR.
[2017-01-16 05:21] VITALS: BP 124/69
--- NOTE | 2017-01-16 05:37 | NUR ---
ZVBP=[id number]. OFFERED COOLING MEASURES BUT REFUSED. STARTED ON CIPRO 500MG PO ORDERED. STILL REQUESTING TO HAVE IV ACCESS BEFORE IV MEDICATION AT 9AM TODAY. KEPT CLEAN AND DRY. ALL NEEDS ATTENDED..
--- NOTE | 2017-01-16 07:00 | NUR ---
RESTING IN BED, AROUSABLE TO LIGHT NOISE, ABLE TO VERBALIZE NEEDS WITH CLEAR SPEECH, DENIES DISCOMFORT, NIGHT RN REPORTS ELEVATED TEMP, TYLENOL ADMINISTERED, PT HAS NO IV ACCESS AT THIS TIME, WILL START IV LINE AFTER BREAKFAST, PER PATIENT'S REQUEST, CALL LIGHT WITHIN REACH, WILL CONTINUE TO PROVIDE CARE.
[2017-01-16 07:26] LABS: CALCIUM 8.4 mg/dL (8.5-10.1); CARBON DIOXIDE 24.9 mmol/L (21-32); CHLORIDE SERUM 103 mmol/L (98-107); CREATININE SERUM 1.3 mg/dL (0.7-1.3); GFR1 > 60 mL/min; GLUCOSE SERUM 71 mg/dL (74-106); POTASSIUM SERUM 4.7 mmol/L (3.5-5.1); SODIUM SERUM 135 mmol/L (136-145)
[2017-01-16 09:25] VITALS: BP 91/43
--- NOTE | 2017-01-16 13:11 | NUR ---
LATE ENTRY FOR 0900: DR CORTEZ REQUESTING [employer] BLOOD CULTURE TO BE DONE TODAY PRIOR TO IV ABX DOSE, DR BERGER TO ENTER ORDER, LAB WILL BE REQUESTING SUPPLIES FROM [facility] IN ORDER TO SEND OUT SAMPLE, BARREL FINISHER LM SPOKE WITH RA IN LAB.
--- NOTE | 2017-01-16 13:14 | NUR ---
TOLERATING MEALS WITHOUT GI DISTRESS, TEMP WNL, DENIES SY, DIZZINESS, OR CHILLS, IS AWARE OF NEED FOR IV LINE INSERTION, VERBALIZED AGREEMENT TO HAVE IV LINE PLACED.
--- NOTE | 2017-01-16 13:46 | NUR ---
NEW IV LINE 24G AT [facility], PT TOLERATED WITHOUT DISTRESS, DOSE OF PENTAMIDINE TO BE INFUSED NOW.
[2017-01-16 17:20] VITALS: BP 96/49
--- NOTE | 2017-01-16 18:54 | NUR ---
PER PATIENT'S REQUEST, PLEASE USE FACE MASK DURING ALL INTERVENTIONS, PT TOLERATING MEALS WITHOUT GI DISTRESS, FAMILY BRINGS FOOD FROM OUTSIDE, DENIES SY, DIZZINESS, PAIN OR DISCOMFORT AT THIS TIME, WAS ABLE TO SHOWER THIS AM, TEMP HAS BEEN WNL, BLOOD CULTURES SENT OUT TODAY, NO OTHER SIGNIFICANT CHANGES NOTED, WILL ENDORSE CARE TO NIGHT RN.
--- NOTE | 2017-01-16 20:14 | NUR ---
RECEIVED AWAKE IN BED WATCHING TV, DENIES ANY HEADACHE/DISCOMFORT AT THIS TIME. TRIED TO ADMINISTER IVF NS AT 50M/HR JUST ORDERED, PT BADLY RESUDED, NA LOW, EXPLIANED THE RSKS/BENEFITS BUT NO AVAIL. MD AWARE. PLACED CALL LIGHT WITHIN REACH AND INSTRUCTED TO CALL FOR ANY ASSSISTANCE NEEDED AND VERBALIZED UNDERSTANDING.
[2017-01-16 22:30] VITALS: BP 91/44
--- NOTE | 2017-01-17 00:10 | NUR ---
EYES CLSOED, NO FACIAL GRIAMCING NOTED. RESPIRATION EVEN AND UNLABORED. NO S/S OF ACUTE RESPIRATORY DISTRESS. CALL LIGHT WITHIN REACH, WILL CONTINUE TO MONITOR.
--- NOTE | 2017-01-17 05:29 | NUR ---
EGKC=599.4F, TYLENOL 650MG GIVEN PO PRN MEDICATION. ORAL FLYUIDS WELL TOLERATED. TRIED TO INFUSE IVF NS AT 50ML/HR , PT STILL REFUSING IT, CONTINUES ON ATB OPO ORDERED, NO ADVERSE REACTION NOTED. KEPT CLEAN AND DRY.
[2017-01-17 06:24] VITALS: BP 109/64
--- NOTE | 2017-01-17 07:15 | NUR ---
PT WAS ENDORSE TO ME THIS MORNING. PT SITTING UP IN BED WITH FAMILY BY HIS SIDE. A/O X4. MEDSURG. PT BREATHING EVEN AND UNLABORED. LUNGS CLEAR. DENIES ANY SOB. 02 STAT 98 ROOMAIR. IV TO THE LFA HEPLOCKED. PT REFUSE NS. SITE IS PATENT. NO REDNESS OR SWELLING NOTED. CALL LIGHT IN REACH. BED IN LOW POSITION. WILL CONTINUE PLAN OF CARE.
[2017-01-17 09:00] LABS: CALCIUM 8.7 mg/dL (8.5-10.1); CARBON DIOXIDE 26.7 mmol/L (21-32); CHLORIDE SERUM 99 mmol/L (98-107); CREATININE SERUM 1.5 mg/dL (0.7-1.3); GFR1 > 60 mL/min; GLUCOSE SERUM 154 mg/dL (74-106); POTASSIUM SERUM 4.1 mmol/L (3.5-5.1); SODIUM SERUM 136 mmol/L (136-145)
[2017-01-17 09:31] VITALS: BP 91/51
--- NOTE | 2017-01-17 13:00 | NUR ---
PT SITTING UP IN BED COLORING. PT STATED WILL NOT BE EATING OUR LUNCH. HIS FRIEND IS BRINGING HIM OUT SIDE FOOD FROM [employer]. PT DENIES ANY PAIN OR DISCOMFORT AT THIS TIME. CALL LIGHT IN REACH.
--- NOTE | 2017-01-17 19:00 | NUR ---
PT IS SITTING UP IN BED WITH FRIENDS BY HIS SIDE. PT IS BREATHING EVEN AND UNLABORED, DENIES ANY PAIN OR DISCOMFORT AT THIS TIME. IV TO THE LFA . PT REFUSE NS AT 100ML/HR. IV SITE PATENT AND INTACT. CALL LIGHT IN REACH.WILL ENDORSE PT TO INCOMING NURSE.
--- NOTE | 2017-01-17 19:51 | NUR ---
PT CURRENTLY RESTING IN BED, NO ACUTE DISTRESS. A/O X4. NO TELE, MED/SURG. DENIES CHEST PAIN. PULSES PALPABLE IN ALL EXTREMITIES, NO EDEMA NOTED. LUNG SOUNDS DIMINISHED IN BILATERAL BASES, NO RESPIRATORY DISTRESS NOTED. BOWEL SOUNDS ACTIVE, LAST BM 01/17/17. VOIDING WELL. AMBULATORY. SKIN INTACT. DENIES PAIN AT THIS TIME. IV PATENT AND INTACT. BED IN LOWEST POSITION, SIDE RAILS UP X2, SCDS IN PLACE, CALL LIGHT WITHIN REACH. WILL CONTINUE TO MONITOR.
[2017-01-17 21:24] VITALS: BP 99/61
--- NOTE | 2017-01-18 02:03 | NUR ---
PT CURRENTLY RESTING IN BED, NO ACUTE DISTRESS. WILL CONTINUE TO MONITOR.
[2017-01-18 06:33] VITALS: BP 110/61
--- NOTE | 2017-01-18 07:00 | NUR ---
PT WAS ENDORSE TO ME THIS MORNING. PT SLEEPING VERY COMFORTABLE. BREATHING EVEN AND UNLABORED, NO RESP DISTRESS OR SOB NOTED. 02 SAT 97% ROOMAIR. IV SITE TO THE LFA, PATENT. PT REFUSE IV FLUIDS NS. CALL LIGHT IN REACH BED IN LOW POSITION. WILL CONTINUE PLAN OF CARE.
--- NOTE | 2017-01-18 09:00 | NUR ---
PT IS RESTING IN BED. ATE MOST OF HIS BREAKFAST. PT DENIES ANY PAIN AT THIS TIME. CALL LIGHT IN REACH. WILL CONTINUE PLAN OF CARE.
[2017-01-18 09:21] VITALS: BP 103/55
[2017-01-18] MEDS ORDERED: DAPSONE100 MG PO (09:36)
[2017-01-18] MEDS ORDERED: ETH400 PO (09:36)
[2017-01-18] MEDS ORDERED: MYCLUD PO (09:36)
[2017-01-18] MEDS ORDERED: BIA500 PO (09:36)
[2017-01-18] MEDS ORDERED: CIP500 PO (09:36)
[2017-01-18 11:22] VITALS: BP 103/55
--- NOTE | 2017-01-18 12:00 | NUR ---
EXPLAINED DC INSTRUCTIONS & TEACHING TO PT AND HIS MOTHER. PT AND MOTHER UNDERSTOOD ALL INFORMATION, PT SIGNED ALL DOCUMENTS. REMOVED IV TO THE LFA, TOLERATED WELL. NO REDNESS OR SWELLING NOTED. PT WILL CALL NURSES STATION WHEN HE IS READY.
--- NOTE | 2017-01-18 12:15 | NUR ---
BLISTER PACKING MACHINE TENDERDiamond GUEVARA WALKED PT AND HIS MOTHER DOWN TO DISCHARGE LOBBY. PT A/O X4. BREATHING EVEN AND UNLABORED. DENIED ANY CHEST PAIN OR SOB.
== END 2017-01-18 12:45 | disposition home or self-care (01) | DRG 890 ==
LOC: ED 18:12 → DU 12-28 02:42 → MU 12-28 02:42 → DU 12-28 18:29 → MU 01-03 10:17
PROVIDERS: Emergency Medicine; Family Medicine; Internal Medicine Infectious Disease; ADMIT Family Medicine
DX: B20 Human immunodeficiency virus [HIV] disease (principal); A31.0 Pulmonary mycobacterial infection; B59 Pneumocystosis; N17.0 Acute kidney failure with tubular necrosis; E87.1 Hypo-osmolality and hyponatremia; B37.0 Candidal stomatitis; E83.42 Hypomagnesemia; E83.39 Other disorders of phosphorus metabolism; E87.6 Hypokalemia; D69.6 Thrombocytopenia, unspecified; E83.51 Hypocalcemia; E86.0 Dehydration; D64.9 Anemia, unspecified; F12.10 Cannabis abuse, uncomplicated; Z68.22 Body mass index [BMI] 22.0-22.9, adult; T37.0X5A Adverse effect of sulfonamides, initial encounter; Y92.230 Patient room in hospital as the place of occurrence of the external cause
CPT/HCPCS: 83880; 84439; 85378; 86480; 86580; 87116; 87206; 87804; 94150; J1200; J1956; J2405; J3475; J3490; J7030; J7512; Q0092; Q0163; Q9967